=== PATIENT | female | born 1960 | race Caucasian/White ===

== ENCOUNTER 2021-11-06 13:40 | Outpatient (REF) | payer MEDICAID, SELFPAY ==
--- NOTE | ~2021-11-06 | XR_ITS ---
EXAMINATION: XR SHOULDER, RIGHT CLINICAL INFORMATION: Pain in right shoulder COMPARISON: None TECHNIQUE: AP external rotation, Grashey, scapular Y, and axillary views of the right shoulder. FINDINGS: Glenohumeral joint space and alignment are maintained. No evidence of arthritic deformity, fracture or subluxation at the glenohumeral joint. The humeral head is well positioned over the intact glenoid. Acromioclavicular joint is normal. No hook-shaped acromion or acromiohumeral distance narrowing. A punctate calcification is seen in region of distal infraspinatus tendon. No significant calcium deposition within rotator cuff tendons. The visualized portion of the right lung is normal. XR/XR shoulder RT min 2V IMPRESSION: * No arthritic disease, fracture or malalignment at the right shoulder. * There is likely a punctate calcification within the distal infraspinatus tendon -- possible minimal calcific tendinopathy.
== END 2021-11-06 13:41 | disposition home or self-care (01) ==
LOC: HO.XRAY 13:40
PROVIDERS: PCP Student in an Organized Health Care Education/Training Program; Visit Provider Student in an Organized Health Care Education/Training Program
DX: M25.511 Pain in right shoulder (principal)
CPT/HCPCS: 73030

== ENCOUNTER 2023-06-09 14:16 | Outpatient (REF) | payer MEDICAID, SELFPAY ==
--- NOTE | ~2023-06-09 | XR_ITS ---
EXAMINATION: XR CERVICAL SPINE CLINICAL INFORMATION: Paresthesias and left hand COMPARISON: None available. TECHNIQUE: 6 views of the cervical spine, inclusive of flexion and extension views, were obtained. FINDINGS: No evidence for acute fracture. There is 4 mm of anterolisthesis of C3 on C4. Moderate to severe multilevel degenerative disc disease, greatest at C5-C6 and C6-C7. Multilevel marginal osteophyte formation. Multilevel moderate facet arthropathy. Suspect some degree of left-sided foraminal narrowing at C3-C4 and C4-C5. Lateral masses are symmetric. Prevertebral soft tissues unremarkable. Lung apices are clear. XR/XR cervical spine 5V IMPRESSION: 1. Moderate to severe multilevel degenerative disc disease, greatest at C5-C6 and C6-C7. 2. Grade 1 anterolisthesis of C3 on C4.
--- NOTE | ~2023-06-09 | XR_ITS ---
EXAMINATION: XR SHOULDER, LEFT CLINICAL INFORMATION: Chronic left shoulder pain COMPARISON: None available. TECHNIQUE: AP external rotation, Grashey, scapular Y, and axillary views of the left shoulder. FINDINGS: The bones and soft tissues are normal. No fracture. Glenohumeral and acromioclavicular alignment is anatomic with normal joint space. No abnormal soft tissue calcifications. XR/XR shoulder LT min 2V IMPRESSION: No acute abnormality in the left shoulder.
[2023-06-09 17:49] LABS: MANUAL DIFF FLAG NO
[2023-06-09 18:01] LABS: Appearance Urine Clear; Color Urine Yellow; Glucose Urine UA Negative (Negative); Leukocyte Esterase Urine Negative (Negative); Nitrite Urine Negative (Negative); Urine Blood Negative (Negative); Urine Ketones Negative (Negative); Urine Protein Negative (Neg-Trace)
[2023-06-09 18:31] LABS: Basophils Absolute Auto 0.1 X10*3/uL (0.0-0.2); Eosinophils Absolute Auto 0.2 X10*3/uL (0.0-0.4); Eosinophils Percent Auto 2.9 % (0-4); Hematocrit 43.3 % (37.0-47.0); Hemoglobin 13.9 g/dl (12.0-16.0); Imm Gran Abs Auto 0.01 X10*3/uL (0.00-0.03); Imm Gran Pct Auto 0.1 % (0.0-0.4); Lymphocytes Absolute Auto 2.3 X10*3/uL (1.2-4.9); Lymphocytes Percent Auto 31.3 % (20-40); Mean Corpuscular HGB Conc 32.1 g/dl (31.0-35.0); Mean Corpuscular Volume 96.4 fL (80.0-98.0); Mean Platelet Volume 10.2 fL (9.4-12.3); Monocytes Absolute Auto 0.5 X10*3/uL (0.1-1.2); Monocytes Percent Auto 6.9 % (2-11); Neutrophils Absolute Auto 4.2 x10*3/uL (2.0-8.3); Neutrophils Percent Auto 57.8 % (45-73); Platelet Count 203 X10*3/uL (160-400); Red Blood Count 4.49 X10*6/uL (4.20-5.50); White Blood Count 7.2 X10*3/uL (4.8-10.8)
[2023-06-09 18:35] LABS: Alanine Aminotransferase 12 U/L (0-31); Alkaline Phosphatase 68 U/L (39-117); Anion Gap 14 (12-20); Aspartate Amino Transferase 17 U/L (5-31); Bilirubin Total 0.5 mg/dL (0.0-1.0); Blood Urea Nitrogen 13 mg/dL (9-16); Calcium 9.6 mg/dL (8.4-10.2); Carbon Dioxide 29 mmol/L (22-29); Chloride 100 mmol/L (96-108); Estimated Glomerular Filt Rate > 60; Glucose Random 110 mg/dL (60-115); Potassium 4.1 mmol/L (3.3-5.1); Sodium 139 mmol/L (135-145); Total Protein 6.9 g/dL (6.5-8.0)
[2023-06-09 18:40] LABS: Creatinine Urine 38.37 mg/dL; Microalbumin Urine < 5.0 mg/L
== END 2023-06-09 14:17 | disposition home or self-care (01) ==
LOC: HO.CHCLDS 14:16
PROVIDERS: Absent Provider Student in an Organized Health Care Education/Training Program; PCP Student in an Organized Health Care Education/Training Program; Visit Provider Internal Medicine
DX: M25.512 Pain in left shoulder (principal); G89.29 Other chronic pain; R20.2 Paresthesia of skin; R60.0 Localized edema
CPT/HCPCS: 36415; 72050; 73030; 80053; 81003; 82043; 85025

== ENCOUNTER 2023-07-20 09:33 | Outpatient (REF) | payer MEDICAID, SELFPAY ==
[2023-07-20 14:55] LABS: Alanine Aminotransferase 16 U/L (0-31); Albumin Level 4.2 g/dL (3.5-5.0); Alkaline Phosphatase 83 U/L (39-117); Aspartate Amino Transferase 19 U/L (5-31); Bilirubin Direct 0.1 mg/dL (0.0-0.5); Bilirubin Total 0.3 mg/dL (0.0-1.0); Cholesterol 251 mg/dL (<200); HDL Cholesterol 63 mg/dL (>40); LDL Cholesterol Calculated 163 mg/dL (<100); Total Protein 7.5 g/dL (6.5-8.0); Triglycerides 126 mg/dL (<150)
[2023-07-20 15:06] LABS: Thyroid Stimulating Hormone 2.26 uIU/mL (0.32-4.0)
== END 2023-07-20 09:34 | disposition home or self-care (01) ==
LOC: HO.CHCLDS 09:33
PROVIDERS: Visit Provider Student in an Organized Health Care Education/Training Program
DX: E03.9 Hypothyroidism, unspecified (principal)
CPT/HCPCS: 36415; 80061; 80076; 84443

== ENCOUNTER 2023-11-17 13:22 | Outpatient (REF) | payer MEDICAID, SELFPAY ==
--- NOTE | ~2023-11-17 | XR_ITS ---
STUDY: Chest, cervical spine and left shoulder INDICATION: Left arm pain COMPARISON: 06/09/2023 screening cervical spine and left shoulder. TECHNIQUE: PA and lateral chest, 4 view cervical spine, 3 view left shoulder FINDINGS: Chest: Heart and mediastinum within normal limits. Lungs are hyperinflated with biapical pleural thickening. No vascular congestion, consolidations or effusions. Bony structures are intact. Cervical spine: Straightening/slight reversal of normal cervical lordosis. 4 mm anterolisthesis C3 on C4 is unchanged. C5 and C6 vertebral body height losses again noted. Multilevel spurring and disc space narrowings again seen. Odontoid is partially obscured but appears intact. Posterior elements are aligned and no prevertebral soft tissue swelling is seen. Lung apices are clear. Soft tissues are unremarkable. Left shoulder: Acromioclavicular glenohumeral joints are maintained. No fracture or dislocation. Alignment and articulations are maintained. Visualized left lung and ribs are unremarkable. XR/XR cervical spine 3V IMPRESSION: No acute cardiopulmonary disease. Cervical spondylosis with unchanged C3 on C4 anterolisthesis. No acute bony pathology left shoulder.
--- NOTE | ~2023-11-17 | XR_ITS ---
STUDY: Chest, cervical spine and left shoulder INDICATION: Left arm pain COMPARISON: 06/09/2023 screening cervical spine and left shoulder. TECHNIQUE: PA and lateral chest, 4 view cervical spine, 3 view left shoulder FINDINGS: Chest: Heart and mediastinum within normal limits. Lungs are hyperinflated with biapical pleural thickening. No vascular congestion, consolidations or effusions. Bony structures are intact. Cervical spine: Straightening/slight reversal of normal cervical lordosis. 4 mm anterolisthesis C3 on C4 is unchanged. C5 and C6 vertebral body height losses again noted. Multilevel spurring and disc space narrowings again seen. Odontoid is partially obscured but appears intact. Posterior elements are aligned and no prevertebral soft tissue swelling is seen. Lung apices are clear. Soft tissues are unremarkable. Left shoulder: Acromioclavicular glenohumeral joints are maintained. No fracture or dislocation. Alignment and articulations are maintained. Visualized left lung and ribs are unremarkable. XR/XR shoulder LT min 2V IMPRESSION: No acute cardiopulmonary disease. Cervical spondylosis with unchanged C3 on C4 anterolisthesis. No acute bony pathology left shoulder.
--- NOTE | ~2023-11-17 | XR_ITS ---
STUDY: Chest, cervical spine and left shoulder INDICATION: Left arm pain COMPARISON: 06/09/2023 screening cervical spine and left shoulder. TECHNIQUE: PA and lateral chest, 4 view cervical spine, 3 view left shoulder FINDINGS: Chest: Heart and mediastinum within normal limits. Lungs are hyperinflated with biapical pleural thickening. No vascular congestion, consolidations or effusions. Bony structures are intact. Cervical spine: Straightening/slight reversal of normal cervical lordosis. 4 mm anterolisthesis C3 on C4 is unchanged. C5 and C6 vertebral body height losses again noted. Multilevel spurring and disc space narrowings again seen. Odontoid is partially obscured but appears intact. Posterior elements are aligned and no prevertebral soft tissue swelling is seen. Lung apices are clear. Soft tissues are unremarkable. Left shoulder: Acromioclavicular glenohumeral joints are maintained. No fracture or dislocation. Alignment and articulations are maintained. Visualized left lung and ribs are unremarkable. XR/XR chest 2V IMPRESSION: No acute cardiopulmonary disease. Cervical spondylosis with unchanged C3 on C4 anterolisthesis. No acute bony pathology left shoulder.
== END 2023-11-17 13:23 | disposition home or self-care (01) ==
LOC: HO.XRAY 13:22
PROVIDERS: Visit Provider Pediatrics
DX: M25.512 Pain in left shoulder (principal); G89.29 Other chronic pain; J06.9 Acute upper respiratory infection, unspecified; M54.2 Cervicalgia
CPT/HCPCS: 71046; 72040; 73030

== ENCOUNTER 2023-11-24 16:15 | Outpatient (REF) | payer MEDICAID, SELFPAY | END 2023-11-24 16:16 | disposition home or self-care (01) | LOC: HO.CHCLNP 16:15 | PROVIDERS: Visit Provider Internal Medicine | DX: N30.00 Acute cystitis without hematuria (principal) | CPT/HCPCS: 87086; 87088; 87186 ==

== ENCOUNTER 2024-06-06 14:21 | Outpatient (REF) | payer MEDICAID, SELFPAY ==
--- NOTE | ~2024-06-06 | XR_ITS ---
EXAMINATION: XR SHOULDER, RIGHT CLINICAL INFORMATION: Right shoulder pain. COMPARISON: None available. TECHNIQUE: AP external rotation, Grashey, scapular Y, and axillary views of the right shoulder. FINDINGS: Bones are osteopenic. No fracture or malalignment. Glenohumeral and acromioclavicular joints are unremarkable. Soft tissues are normal. XR/XR shoulder RT min 2V IMPRESSION: No acute osseous findings at the right shoulder. Osteopenia.
== END 2024-06-06 14:22 | disposition home or self-care (01) ==
LOC: HO.HMGCX 14:21
PROVIDERS: PCP Student in an Organized Health Care Education/Training Program; Visit Provider Internal Medicine
DX: M25.511 Pain in right shoulder (principal); G89.29 Other chronic pain
CPT/HCPCS: 73030

== ENCOUNTER 2024-11-10 10:05 | Outpatient (REF) | payer MEDICAID, SELFPAY | END 2024-11-10 10:06 | disposition home or self-care (01) | LOC: HO.HOSX 10:05 | PROVIDERS: Visit Provider Physician Assistant | DX: Z13.89 Encounter for screening for other disorder (principal) ==

== ENCOUNTER 2024-11-11 08:45 | Outpatient (REF) | payer MEDICAID, SELFPAY | END 2024-11-11 08:46 | disposition home or self-care (01) | LOC: HO.HOSX 08:45 | PROVIDERS: Visit Provider Physician Assistant | DX: M25.512 Pain in left shoulder (principal); M19.012 Primary osteoarthritis, left shoulder; M24.812 Other specific joint derangements of left shoulder, not elsewhere classified | CPT/HCPCS: 73030; 99212 ==

== ENCOUNTER 2024-11-11 10:57 | Outpatient (AMB) | payer MEDICAID, SELFPAY ==
--- NOTE | 2024-11-11 10:59 | A.OFFVIS_ITS ---
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 Patient reports ongoing pain for about a year and she feels like it is getting worse over time. She mentions that her pain is worse when she is lifting, pushing, raising her arm, and carrying heavy items. Patient states that her pain is all around her shoulder and it radiates up to her neck occasionally. She expresses that she has tried NSAIDs and Tylenol with no relief. 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 The patient was seen by Dr. Marion Cortez on 10/11/24 for left shoulder pain. She described her pain as an ache. She is unable to bear weight in her left upper extremity. She notices joint locking and limited range of motion. She received 2 ml of 40 mg Kenalog and 2 ml of 2% lidocaine injection in the left shoulder on that encounter. She was referred to [facility] for further evaluation of pain. While in the office today, the patient reports persistent left shoulder pain ongoing for about a year and has been getting worse. She specifies her pain in her whole left shoulder that occasionally radiates up to her neck. She mentions worsening pain with lifting, pushing, raising her left arm, and while carrying heavy items. She has tried NSAIDs and Tylenol with no relief.? She has a significant past medical history of osteoarthritis. Review of Systems Const All systems reviewed & are unremarkable except as noted in HPI and below Physical Exam Const General: cooperative and no acute distress Orientation/consciousness: patient oriented x3 Resp Effort & Inspection: normal respiratory effort and able to speak in complete sentences Cardio Peripheral pulses: Peripheral pulses 2+ throughout Skin General skin exam: no rashes or lesions noted Neuro General: patient oriented x3 Extrem Other: Left shoulder: Normal to inspection. No ecchymosis, erythema, or edema. Forward flexion and abduction lacking about 30 degrees. Pain with crossbody reach. 4/5 strength with an empty can test. Negative drop arm. NVI. Assessment & Plan Assessment & Plan (1) Osteoarthritis of left shoulder: Code(s): M19.012 - Primary osteoarthritis, left shoulder Category: Medical (2) Internal derangement of left shoulder: Code(s): M24.812 - Other specific joint derangements of left shoulder, not elsewhere classified Category: Medical Plan Ms. Saeed is a 64-year-old ylagf-prkh-[id number] female who presents in the office today, as a new patient, for an evaluation of left shoulder pain. The patient was seen by Dr. Marion Cortez on 10/11/24 for left shoulder pain. She described her pain as an ache. She is unable to bear weight in her left upper extremity. She notices joint locking and limited range of motion. She received 2 ml of 40 mg Kenalog and 2 ml of 2% lidocaine injection in the left shoulder on that encounter. She was referred to [facility] for further evaluation of pain. While in the office today, the patient reports persistent left shoulder pain ongoing for about a year and has been getting worse. She specifies her pain in her whole left shoulder that occasionally radiates up to her neck. She mentions worsening pain with lifting, pushing, raising her left arm, and while carrying heavy items. She has tried NSAIDs and Tylenol with no relief.? She has a significant past medical history of osteoarthritis. The patient informed me that she has been receiving cortisone injections with her primary care provider, which are no longer effective in alleviating her pain. Therefore, she was referred to orthopedics for the possibility of surgical intervention. I have ordered an MRI of the left shoulder to further evaluate the integrity of the shoulder and surrounding structures. Follow-up will be after the MRI is obtained or sooner if needed. X-rays of the left shoulder, which were obtained while in the office today and were reviewed by me, Della Gutierrez PA-C, revealed: Arthritic changes and deformity of the humeral head.? Orders: Orders XR shoulder LT min 2V Today M25.519 - Pain in unspecified shoulder MR shoulder LT wo con Today M19.012 - Primary osteoarthritis, left shoulder, M24.812 - Other specific joint derangements of left shoulder, not elsewhere classified Patient Instructions: Scribed by Oralia Vieira, medical imaging technologist, for Della Gutierrez PA-C on 11/11/24 at 11:31 am EST. Coding Level of Care Code New Pt Level 4 (30820) Diagnoses Osteoarthritis of left shoulder M19.012 Internal derangement of left shoulder M24.812
== END 2024-11-11 11:15 | disposition home or self-care (01) ==
PROVIDERS: PCP Student in an Organized Health Care Education/Training Program; Visit Provider Physician Assistant
DX: M19.012 Primary osteoarthritis, left shoulder (principal); M24.812 Other specific joint derangements of left shoulder, not elsewhere classified
CPT/HCPCS: 99204

== ENCOUNTER 2024-11-27 10:40 | Outpatient (REF) | payer MEDICAID, SELFPAY | END 2024-11-27 10:41 | disposition home or self-care (01) | LOC: HO.MRI 10:40 | PROVIDERS: PCP Student in an Organized Health Care Education/Training Program; Visit Provider Physician Assistant | DX: M19.012 Primary osteoarthritis, left shoulder (principal); M24.812 Other specific joint derangements of left shoulder, not elsewhere classified | CPT/HCPCS: 73221 ==

== ENCOUNTER → 2024-11-27 10:40 | Outpatient (BNV) | payer MEDICAID, SELFPAY | PROVIDERS: PCP Student in an Organized Health Care Education/Training Program; Visit Provider Radiology Diagnostic Radiology | DX: M75.122 Complete rotator cuff tear or rupture of left shoulder, not specified as traumatic (principal); M89.8X2 Other specified disorders of bone, upper arm | CPT/HCPCS: 73221 ==

== ENCOUNTER → 2024-12-29 14:08 | Outpatient (BNVA) | payer MEDICAID, SELFPAY | PROVIDERS: PCP Student in an Organized Health Care Education/Training Program; Visit Provider Orthopaedic Surgery | DX: M12.812 Other specific arthropathies, not elsewhere classified, left shoulder (principal); M87.022 Idiopathic aseptic necrosis of left humerus | CPT/HCPCS: 99212 ==

== ENCOUNTER 2025-01-02 15:17 | Outpatient (REF) | payer MEDICAID, SELFPAY ==
--- OUTSIDE RECORDS SUMMARY | 2025-01-02 16:47 | XMS_ITS | Encounter Summary ---
Author Organization [employer] Address [address] [place] [address] [address] [place] [address] Care Team Providers Care Machinist Class B Name Role Phone Marion Cortez MD Primary Care Provider [phone] Reason for Visit * Reason Comments OBAT F/U Encounter Details Date Type Department Care Team (Latest Contact Info) Description 12/05/2024 9:30 AM EST Office Visit [facility] PEDS [address] [place] [address] Yovani Ramires MD [address] [place] [address] Uncomplicated opioid dependence (CMS/HCC) (Primary Dx); Opioid dependence, uncomplicated (CMS/HCC) Social History Tobacco Use Types Packs/Day Years Used Date Smoking Tobacco: Every Day Cigarettes Passive Smoke Exposure: Current Smokeless Tobacco: Never Housing Stability Answer Date Recorded What is your housing situation today? I have hayde escalante 09/14/[address] you li ve. Do you have problems with any of the following? None of the above 09/14/2023 Food Insecurity Answer Date Recorded Within the past 12 months, y ou worried that your food would run out before you got money to buy more: Never True 09/14/2023 Within the past 12 months,th e food you bought just didn't last and you didn't have enough money to get more: Never True Transportation Answer Date Recorded In the past 12 months, has l ack of transportation kept you from medical appts, meetings, work or from getting things needed for daily living? No 09/14/2023 Utilities Answer Date Recorded In the past 12 months, has t he electric, gas, oil or water [employer] threatened to shut off services in your home? No 09/14/2023 Comments No Sex and Gender Information Value Date Recorded Sex Assigned at Female 09/29/2022 10:18 AM EDT Legal Sex Female 10:18 AM EDT Gender Identity Female 09/29/2022 10:18 AM EDT Sexual Orientation Straight 09/29/2022 10 :18 AM EDT documented as of this encounter Progress Notes * Yovani Ramires MD - 12/05/2024 9:30 AM EST Patient has been in the OBAT program for 16 years 7 months (intake date: 04/2008) Current Suboxone dose of 20/5 mg daily with appointments on a 8-week schedule Behavioral health provider is integrated clinician as needed SINAI ERAZO reviewed by provider COVID Vaccinated. 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 Denies cravings/relapse Suboxone dosing schedule and management of side effects reviewed TODAY OBAT VISIT 12/05/2024 UTOX: POS BUP ONLY NEG FOR ALL OTHER SUBSTANCES Patient presents for OUD OBAT visit Struggling with her chronic pain (neck and shoulders) Inquiring about increasing the dose of Suboxone Just got her shoulder MRI done (ordered by Ortho) Helps out with care of grandchildren (one with autism); one in and the other middle school Mother 2 years ago due to dementia complications Grieving her loss, but has family supports 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 The patient is not nervous/anxious. Physical Exam Constitutional: Appearance: Normal appearance. Pulmonary: Effort: Pulmonary effort is normal. Neurological: Mental Status: She is alert. Psychiatric: Mood and Affect: Mood normal. Behavior: Behavior normal. Darlin was seen today for obat f/u . Diagnoses and all orders for this visit: Uncomplicated opioid dependence (CMS/HCC) (Primary) - POCT JUANI-14 Urine Drug Screen - Hepatic Function Panel; Future Patient presents for a routine OUD OBAT visit Discussed treatment options for opioid dependence Patient is tolerating current treatment of Buprenorphine/Naloxone SL Will increase the dose of Buprenorphine/Naloxone to 8mg/2mg SL TID per patient request Advised to check LFT Discussed behavioral modification and accessing services Counseling provided with a focus on support system, tools for achieving/maintaining recovery Reviewed barriers for these goals Discussed strategies to address when faced situations that may trigger use Continue with current visit schedule Narcan use discussed [place] reviewed Reviewed risk assessment for family planning, STI and PrEP Follow up in 8 weeks This information has been disclosed to you from records protected by federal confidentiality rules (42 CFR Part 2). The federal rules prohibit you from making any further disclosure of information inthis record that identifies a patient as having or having had a substance use disorder either directly, by reference to publicly available information, or through verification of such identification by another person unless further disclosure is expressly permitted by the written consent of the individual whose information is being disclosed or as otherwise permitted by (see2.3.1). The federal rules restrict any use of the information to investigate or prosecute with regard to a crime any patient with a substance use disorder, except as provided at 2.12??(5) and 2.65. documented in this encounter Plan of Treatment Upcoming Encounters Date Type Department Care Team (Late st Contact Info) Description 01/30/2025 9:30 AM EST Office Visit [facility] PED[facility] [address] [place] [address] Yovani Ramires MD [address] [place] [address] [phone] Scheduled Orders Name Type Priority Associated Diagnoses Orde r Schedule Hepatic Function Panel Lab Routine Uncomplicated opioid dependence (CMS/HCC) Expected: 12/05/2024 (Approximate), Expires: 12/05/2025 documented as of this encounter Procedures Procedure Name Priority Date/Time Associated Diagnosis Comments POCT JUANI-14 URINE DRUG SCREEN Routine 12/05/2024 11:16 AM EST Uncomplicated opioid dependence (CMS/HCC) documented in this encounter Results * POCT JUANI-14 Urine Drug Screen (12/05/2024 11:16 AM EST) THC Negative Cocaine Screen, Urine Negative Opiate Screen, Urine Negative Methamphetamine Screen Urine Negative Amphetamine Screen, Urine Negative Benzodiazepines Screen, Urine Negative Barbiturate Screen, Urine Negative Methadone Screen, Urine Negative Buprenophine Screen, Urine Positive TCA, Urine Negative MDMA Urine Negative ng/mL Oxycodone Screen, Urine Negative Phencyclidine (PCP), Urine Negative Propoxyphene, Urine Negative Urine Urine specimen obtained by clean catch procedure / Unknown 12/05/2024 11:16 AM EST Yovani Ramires MD POINT OF CARE TEST ENTER/EDIT OR DERABLES Final Result documented in this encounter Visit Diagnoses Diagnosis Uncomplicated opioid dependence (CMS/HCC)- Primary Opioid dependence, uncomplicated (CMS/HCC) documented in this encounter Care Teams Machinist Class B Relationship Specialty Start Date End Date Marion Cortez MD [address] [place] [id number] PCP - General Family Medicine 11/12/12 documented as of this encounter
--- OUTSIDE RECORDS SUMMARY | 2025-01-02 16:47 | XMS_ITS | Encounter Summary ---
Author Organization [employer] Address [address] [place] [address] [address] [place] [address] Care Team Providers Care Inventory Clerk Name Role Phone Marion Cortez MD Primary Care Provider [phone] Reason for Visit * Reason Comments Med Refill Encounter Details Date Type Department Care Team ([facility] Contact Info) Description 12/13/2024 Refill [facility] MED & PEDS [address] [place], [place] [phone] Marion Cortez MD [address] [place] [address] Uncomplicated asthma, unspecified asthma severity, unspecified whether persistent Social History Tobacco Use Types Packs/Day Years [...] t he electric, gas, oil or water company threatened to shut off services in your home? No 09/14/2023 Comments No Sex and Gender Information Value Date Recorded Sex Assigned at Female 09/29/2022 10:18 AM EDT Legal Sex Female 10:18 AM EDT Gender Identity Female 09/29/2022 10:18 AM EDT Sexual Orientation Straight 09/29/2022 10 :18 AM EDT documented as of this encounter Plan of Treatment Upcoming Encounters Date Type Department Care Team (Late st Contact Info) Description 01/30/2025 9:30 AM EST Office Visit [facility] MED & PEDS [address] [place] [address] Yovani Ramires MD [address] [place] [address] documented as of this encounter Visit Diagnoses Diagnosis Uncomplicated asthma, unspecified asthma severity, unspecified whether persistent documented in this encounter Care Teams Inventory Clerk Relationship Specialty Start Date End Date Marion Cortez MD [address] [place] [address] PCP - General Family Medicine 11/12/12 documented as of this encounter
--- OUTSIDE RECORDS SUMMARY | 2025-01-02 16:47 | XMS_ITS | Clinical Summary ---
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 Name Role Phone Marion Cortez MD Primary Care Provider Allergies No known active allergies Medications albuterol (2.5 MG/3ML) 0.083% nebulizer solution inhale 3 milliliter by nebulization route every 4 - 6 hours 015 Active ibuprofen 800 MG tablet take 1 tablet by oral route 3 times every day with food 022 Active naloxone (Narcan) 4 mg/0.1 mL nasal spray spray 0.1 milliliter by intranasal route in 1 nostril may repeat dose every 2-3 minutes as needed alternating nostrils with each dose 020 Active Nebulizers (Comp Air Compressor Nebulizer) misc To use every 4-6 hours as needed 015 Active Elastic Bandages & Supports (Futuro Therapeutic Stocking) miscIndications: Swelling of lower extremity 10-20 mm/Hg. Knee high. Dx : Edema lower limbs. 1 each 023 Active phenazopyridine (Pyridium) 100 MG tabletIndication s:Acute cystitis without hematuria TAKE ONE TABLET BY MOUTH THREE TIMES DAILY NEEDED FOR BLADDER SPASMS 6 tablet 024 Active meloxicam (Mobic) 15 MG tablet TAKE ONE TABLET EVERY MORNING 30 tablet 11 024 Active cyclobenzaprine (Flexeril) 10 MG tablet TAKE ONE TABLET THREE TIMES DAILY FOR 10 DAYS 30 tablet 1 024 Active levothyroxine (Synthroid, Levoxyl) 112 MCG tablet TAKE ONE TABLET BY MOUTH EVERY DAY 90 tablet 5 024 Active cyclobenzaprine (Flexeril) 10 MG tablet Take 1 tablet (10 mg) by mouth 3 times daily for 10 days. 30 tablet 024 Active PARoxetine (Paxil) 30 MG tabletIndication s:Depression, unspecified depression type TAKE ONE TABLET BY MOUTH DAILY 30 tablet 3 024 Active Buprenorphine HCl-Naloxone HCl (Suboxone) 8-2 MG SL filmIndications: Opioid dependence, uncomplicated (CMS/HCC) Place 1 Film under the tongue 3 times daily. 84 Film 1 025 2024 Active Ventolin HFA 108 (90 Base) MCG/ACT inhalerIndicatio ns:Uncomplicated asthma, unspecified asthma severity, unspecified whether persistent INHALE TWO PUFFS EVERY 4 HOURS NEEDED FOR WHEEZING 18 g 1 025 Active Ventolin HFA 108 (90 Base) MCG/ACT inhalerIndicatio ns:Uncomplicated asthma, unspecified asthma severity, unspecified whether persistent INHALE TWO PUFFS EVERY 4 HOURS NEEDED FOR WHEEZING 18 g 1 024 2024 Discontinued buprenorphine-na loxone (Suboxone) 8-2 MG SL tabletIndication s:Opioid dependence, uncomplicated (CMS/HCC) Place 2 tablets under the tongue Once per day. 56 tablet 1 024 2024 Discontinued buprenorphine-na loxone (Suboxone) 4-1 MG per sublingual filmIndications: Opioid dependence, uncomplicated (CMS/HCC) Place 1 Film under the tongue Once per day. 28 Film 1 024 2024 Discontinued Active Problems Problem Noted Date Diagnosed Date Tobacco dependence syndrome 08/07/2015 Opioid dependence 01/25/2013 Ganglion cyst 04/01/2012 Hypothyroidism 04/01/2012 Postmenopausal bleeding 04/01/2012 Encounters Date Type Department Care Team Description 01/02/2025 Refill [facility] [address] [place] [address] Marion Cortez MD 12/13/2024 Refill [facility] [address] [facility] [place] [address] Marion Cortez MD Uncomplicated asthma, unspecified asthma severity, unspecified whether persistent 12/05/2024 9:30 AM EST Office Visit [facility] [address] [place] [address] Yovani Ramires MD Uncomplicated opioid dependence (CMS/HCC) (Primary Dx); Opioid dependence, uncomplicated (CMS/HCC) 12/05/2024 Travel 11/28/2024 Refill [facility] [address] [place] [address] Josh Campos RN Opioid dependence, uncomplicated (CMS/HCC) 11/27/2024 Orders Only [facility] External Provider, [facility] 11/03/2024 9:45 AM EST Procedure Visit [facility] [address] [place] [address] Marion Cortez MD Chronic right shoulder pain (Primary Dx) 11/03/2024 Travel 11/02/2024 Telephone [place] [employer] [address] [place] [address] Marion Cortez MD 10/28/2024 Refill [facility] [address] [place] [address] Marion Cortez MD Depression, unspecified depression type 10/16/2024 Refill [facility] [address] [place] [address] Marion Cortez MD Uncomplicated asthma, unspecified asthma severity, unspecified whether persistent 10/11/2024 10:00 AM EST Procedure Visit [facility] [address] [place] [id number] Marion Cortez MD Chronic left shoulder pain (Primary Dx) 10/11/2024 Travel 10/10/2024 10:30 AM EST Office Visit [facility] [address] [place] [address] Yovani Ramires MD Opioid type dependence, continuous (CMS/HCC) (Primary Dx) 10/10/2024 Travel 10/03/2024 Refill [facility] [address] [place] [address] Josh Campos RN Opioid dependence, uncomplicated (CMS/HCC) from Last 3 Months Immunizations Name Administration Dates Next Due Influenza injectable quadriv alent IIV4 with preservative 09/06/2018,01/05/2018 Influenza, IIV3, injectable 10/16/2014 Influenza, Split (incl. purified surface antigen ) 08/17/2012 Pfizer Covid-19 Vaccine 12+ 03/24/2021, Td (adult), unspecified 08/19/2001 Social History Tobacco Use Types Packs/Day Years Used Date Smoking Tobacco: Every Day Cigarettes Passive Smoke Exposure: Current Smokeless Tobacco: Never Tobacco Cessation:Ready to Q uit: Not Asked; Counseling Given: Not Answered Housing Stability Answer Date Recorded What is [...] Orientation Straight 09/29/2022 10 :18 AM EDT Last Filed Vital Signs Vital Sign Reading Time Taken Comments Blood Pressure 143/76 11/03/2024 10:06 AM EST Pulse 73 11/03/2024 10:06 AM EST Temperature 36.3 ??C (97.3 ??F) 11/03/2024 10:[address] Respiratory Rate 12 11/03/2024 10:06 AM EST Oxygen Saturation 93% 11/03/2024 10:06 AM EST Inhaled Oxygen Concentration - - Weight 66.2 kg (146 lb) 11/03/2024 10:06 AM EST Height 154.9 cm (5' 1 ) 11/03/2024 10:06 AM EST Body Mass Index 27.59 11/03/2024 10:06 AM EST Plan of Treatment Upcoming Encounters Date Type Department Care Team (Late st Contact Info) Description 01/30/2025 9:30 AM EST Office Visit [facility] [address] [place] [address] Yovani Ramires MD [address] [place] [address] Health Maintenance Due Date Last Done Comments CT Colonography 1961 Colonoscopy 1961 Colorectal Cancer Screening 1961 Dental Oral Exam 1961 Dental Prophylaxis 1961 Dental X-Ray: Full Mouth 1961 Depression Screening 1961 FIT DNA/Cologuard 1961 FIT 1961 FOBT 1961 HIV Screening 1961 Sigmoidoscopy 1961 Pneumococcal Vaccine: Pediatrics (0 to 5 Years) and At-Risk Patients (6 to 49) Years) (1 of 2 - PCV) 1967 Alcohol/Substance Use Screening 1973 Hepatitis A Vaccines (1 of 2 - Risk 2-dose series) 1980 Pneumococcal Vaccine: 50+ Years (1 of 2 - PCV) 1980 Pap Smear 1982 DTaP/Tdap/Td Vaccines (1 - Tdap) 08/20/2001 08/19/2001 Zoster Vaccines (1 of 2) 2011 Mammogram 01/27/2020 01/27/2018 RSV Patients and Patients Aged 60 years or older (1 - Risk 60-74 years 1-dose series) 2021 Cervical Cancer Screening 01/05/2023 HPV/Cotest 01/05/2023 01/05/2018 SDOH Screening 06/25/2024 06/25/2023 COVID-19 Vaccine ( season) 2024 03/24/2021, 03/02/2021 Influenza Vaccine (#1) 2024 8, 01/05/2018, 10/16/2014, Additional history exists Dental X-Ray: Bitewings 08/20/2024 08/19/2023 Tobacco Screening 10/11/2025 10/11/2024 Lipid Panel 07/20/2028 07/20/2023 Hepatitis C Screening Completed 08/19/2021 HIB Vaccines Aged Out No longer eligi ble based on patient's age to complete this topic HPV Vaccines Aged Out No longer eligi ble based on patient's age to complete this topic Hepatitis B Vaccines Aged Out No long er eligible based on patient's age to complete this topic IPV Vaccines Aged Out No longer eligi ble based on patient's age to complete this topic Meningococcal Vaccine Aged Out No maria d ze eligible based on patient's age to complete this topic RSV under 20 months Aged Out No longe r eligible based on patient's age to complete this topic Rotavirus Vaccines Aged Out No longer eligible based on patient's age to complete this topic Procedures Procedure Name Priority Date/Time Associated Diagnosis Comments POCT JUANI-14 URINE DRUG SCREEN Routine 12/05/2024 11:16 AM EST Uncomplicated opioid dependence (CMS/HCC) MR SHOULDER WO CONTRAST LEFT Routine 11/27/2024 10:45 AM EST MA ARTHROCENTESIS ASPIR&/INJ MAJOR JT/BURSA W/O US Routine 11/03/2024 10:41 AM EST Chronic right shoulder pain MA ARTHROCENTESIS ASPIR&/INJ MAJOR JT/BURSA W/O US Routine 10/11/2024 10:14 AM EST Chronic left shoulder pain POCT JUANI-14 URINE DRUG SCREEN Routine 10/10/2024 10:30 AM EST Opioid type dependence, continuous (CMS/HCC) BITEWING - SINGLE RADIOGRAPHIC IMAGE Routine 08/19/2023 1:00 PM EDT LIPID PANEL, STANDARD Routine 07/20/2023 9:37 AM EDT Hypothyroidism, unspecified type [facility] HISTORICAL HEPATITIS C AB W/REFL TO HCV RNA, QN, PCR Routine 08/19/2021 11:16 AM EDT BI MAMMOGRAM SCREENING BILATERAL Routine 01/27/2018 7:04 AM EST [facility] HISTORICAL HPV MRNA E6/E7 Routine 01/05/2018 10:36 AM EST from Last 3 Months or Most Recently Relevant to Health Maintenance Results * POCT JUANI-14 Urine Drug Screen (12/05/2024 11:16 AM EST) Only the most recent of2 resultswithin the time period is included. THC Negative Cocaine Screen, Urine Negative Opiate [...] CARE TEST ENTER/EDIT OR DERABLES Final Result * MR Shoulder w/o Contrast Left (11/27/2024 10:45 AM EST) Anatomical Region Laterality Modality Upper Extremities, Shoulder Left Magn etic Resonance 11/27/2024 10:4 5 AM EST Narrative 12/06/2024 12:22 PM EST ? [facility] ?[address] ?[place] [address] ? Magnetic Resonance Report ? Signed ? Patient: Monique,Darlin ?MR#: [id number] ?? [id number] ? : 1960 ?Acct:[id number] ? Age/Sex: 64 / F ?ADM Date: 12/29/24 ? Loc: HO.MRI ? Attending Dr: Della Gutierrez PA-C ? Ordering Physician: Della Gutierrez PA-C ?? Date of Service: 11/27/24 ?? Procedure(s): MR shoulder LT wo con ?? Accession Number(s): [id number] ? cc: Della Gutierrez PA-C; Marion Cortez MD ? EXAMINATION: MRI LEFT SHOULDER WITHOUT CONTRAST ? HISTORY: M24.812 - Other specific joint derangements of left shoulder, ?? not elsewhere... ? COMPARISON: Correlation is made with plain films of the left shoulder ?? dated 11/11/2024. ? TECHNIQUE: ??Coronal T1, T2, and fat suppressed T2, axial fat suppressed ?? proton density, and sagittal T2 weighted MR images of the left shoulder ?? were obtained. ? FINDINGS: ?? There is marked bone marrow edema involving the humeral head and ?? proximal metaphysis as well as the osseous glenoid. There is mild ?? flattening of the humeral head. There is a moderate to large ?? glenohumeral joint effusion. There is moderate degenerative change ?? involving the glenohumeral joint with cartilage loss. The AC joint is ?? maintained. ? There is a large full-thickness tear of the supraspinatus tendon with ?? tendon retraction and muscle atrophy. The humeral head is high riding ?? and articulates with the undersurface of the acromion, consistent with ?? rotator cuff arthropathy. The subscapularis tendon is intact. There is ?? mild edema of the subscapularis muscle may indicate a partial tear. ?? There is a tear of the infraspinatus tendon with retraction and muscle ?? atrophy. The teres minor tendon is intact. ? The biceps tendon is normally located. ? MR/MR shoulder LT wo con ?? IMPRESSION: ? 1. Full-thickness tears of the supraspinatus and infraspinatus tendons ?? with tendon retraction and muscle atrophy. Findings consistent with ?? rotator cuff arthropathy. ? 2. Marked bone marrow edema involving the left humeral head and ?? proximal metaphysis as well as the osseous glenoid. There is associated ?? mild flattening of the humeral head and a joint effusion. Findings are ?? suggestive of avascular necrosis. Infection appears less likely. ?? Clinical correlation is recommended. ? Electronically signed by: ??Rashawn Celis MD ??12/06/2024 12:19 PM EST ? Dictated By: ?Rashawn Celis MD ? Signed By: ?<Electronically signed by Rashawn Celis MD in OV> ?12/06/24 1219 ? DD/ 1045 ? TD/TT: 11/27/24 1110 ? Coding Technician: ? Procedure Note Donjackinterpreter, Image - 12/06/[address] [address] Magnetic Resonance Report Signed Patient: Cande Amaya#: [id number] : 1960cct:[id number] Age/Sex: 64 / FADM Date: 11/27/24 Loc: HO.MRI Attending Dr: Della Gutierrez PA-C Ordering Physician: Della Gutierrez PA-C Date of Service: 11/27/24 Procedure(s): MR shoulder LT wo con Accession Number(s): [id number] cc: Della Gutierrez PA-C; Marion Cortez MD EXAMINATION: MRI LEFT SHOULDER WITHOUT CONTRAST HISTORY: M24.812 - Other specific joint derangements of left shoulder, not elsewhere... COMPARISON: Correlation is made with plain films of the left shoulder dated 11/11/2024. TECHNIQUE: Coronal T1, T2, and fat suppressed T2, axial fat suppressed proton density, and sagittal T2 weighted MR images of the left shoulder were obtained. FINDINGS: There is marked bone marrow edema involving the humeral head and proximal metaphysis as well as the osseous glenoid. There is mild flattening of the humeral head. There is a moderate to large glenohumeral joint effusion. There is moderate degenerative change involving the glenohumeral joint with cartilage loss. The AC joint is maintained. There is a large full-thickness tear of the supraspinatus tendon with tendon retraction and muscle atrophy. The humeral head is high riding and articulates with the undersurface of the acromion, consistent with rotator cuff arthropathy. The subscapularis tendon is intact. There is mild edema of the subscapularis muscle may indicate a partial tear. There is a tear of the infraspinatus tendon with retraction and muscle atrophy. The teres minor tendon is intact. The biceps tendon is normally located. MR/MR shoulder LT wo con IMPRESSION: 1. Full-thickness tears of the supraspinatus and infraspinatus tendons with tendon retraction and muscle atrophy. Findings consistent with rotator cuff arthropathy. 2. Marked bone marrow edema involving the left humeral head and proximal metaphysis as well as the osseous glenoid. There is associated mild flattening of the humeral head and a joint effusion. Findings are suggestive of avascular necrosis. Infection appears less likely. Clinical correlation is recommended. Electronically signed by: Rashawn Celis MD 12/06/2024 12:19 PM EST Dictated By: Rashawn Celis MD Signed By: <Electronically signed by Rashawn Celis MD in OV> 12/06/24 1219 DD/ 1045 TD/TT: 11/27/24 1110 Coding Technician: [facility] External Provider IMG MRI PROCEDURES Edited Result - Final * [place] ARTHROCENTESIS ASPIR&/INJ MAJOR JT/BURSA W/O US (11/03/2024 10:41 AM EST) Narrative Marion Cortez MD - 11/03/2024 10:41 AM EST Marion Cortez MD ? 11/03/2024 12:25 PM Arthrocentesis Date/Time: 11/03/2024 10:41 AM Performed by: Marion Cortez MD Authorized by: Marion Cortez MD ?? Consent: ??Consent obtained: ??Verbal ??Consent given by: ??Patient ??Risks, benefits, and alternatives were discussed: yes ?Risks discussed: ??Pain ??Alternatives discussed: ??Referral [place] protocol: ??Procedure explained and questions answered to patient or proxy's satisfaction: yes ?Relevant documents present and verified: yes ?Test results available: yes ?Imaging studies available: yes ?Required blood products, implants, devices, and special equipment available: yes ?Site/side marked: yes ?Immediately prior to procedure, a time out was called: yes ?Patient identity confirmed: ??Verbally with patient Location: ??Location: ??Shoulder ??Shoulder: ??R glenohumeral Anesthesia: ??Anesthesia method: ??Topical application Procedure details: ??Preparation: Patient was prepped and draped in usual sterile fashion ?Needle gauge: ??22 G ??Ultrasound guidance: no ?Approach: ??Posterior ??Steroid injected: yes ?Specimen collected: no ?? Post-procedure details: ??Dressing: ??Adhesive bandage ??Procedure completion: ??Tolerated us Marion Cortez MD IN CLINIC/BEDSIDE ORDERABLES Fin al Result * [place] ARTHROCENTESIS ASPIR&/INJ MAJOR JT/BURSA W/O US (10/11/2024 10:14 AM EST) Narrative Marion Cortez MD - 10/11/2024 10:14 AM EST Marion Cortez MD ? 10/11/2024 10:23 AM Arthrocentesis Date/Time: 10/11/2024 10:14 AM Performed by: Marion Cortez MD Authorized by: Marion Cortez MD ?? Consent: ??Consent obtained: ??Verbal and written ??Consent given by: ??Patient ??Risks, benefits, and alternatives were discussed: yes ?Risks discussed: ??Pain ??Alternatives discussed: ??Referral [place] protocol: ??Procedure explained and questions answered to patient or proxy's satisfaction: yes ?Relevant documents present and verified: yes ?Test results available: yes ?Imaging studies available: yes ?Required blood products, implants, devices, and special equipment available: yes ?Site/side marked: yes ?Immediately prior to procedure, a time out was called: yes ?Patient identity confirmed: ??Verbally with patient Location: ??Location: ??Shoulder ??Shoulder: ??L glenohumeral Anesthesia: ??Anesthesia method: ??Topical application Procedure details: ??Preparation: Patient was prepped and draped in usual sterile fashion ?Needle gauge: ??22 G ??Ultrasound guidance: no ?Approach: ??Posterior ??Steroid injected: yes ?Specimen collected: no ?? Post-procedure details: ??Dressing: ??Adhesive bandage ??Procedure completion: ??Tolerated Marion Cortez MD IN CLINIC/BEDSIDE ORDERABLES Fin al Result * (ABNORMAL) Lipid Panel, Standard (07/20/2023 9:37 AM EDT) Triglycerides 126 <150 mg/dL [facility] Comment:Desirable Triglyceri de: less than 150 mg/dLBorderline High Triglyceride 150-199 mg/dLHigh Triglyceride: 200-499 mg/dLVery High Triglyceride: greater than or equal to 5OO mg/dL Cholesterol 251(H) <200 mg/dL [facility] Comment:Desirable Cholestero l: less than 200 mg/dLBorderline High Cholesterol: 200-239 mg/dLHigh Cholesterol: greater than 239 mg/dL LDL Cholesterol Calculated 163(H) <100 mg/dL [facility] Comment:Desirable LDL: less than 100 mg/dLNear Optimal/Above Optimal LDL: 110- 129 mg/dLBorderline High LDL: 130-159 mg/dLHigh LDL: 160-189 mg/dLVery High LDL: greater than or equal to 190 mg/dL HDL Cholesterol 63 >40 mg/dL [facility] Comment:Desirable HDL: great er than 40 mg/dL Note: This HDL assay may give artificially low results in patients with liver disease. Blood Venous blood specimen / Unknown 07/20/2023 9:37 AM EDT 07/20/2023 2:13 PM EDT Marion Cortez MD LAB BLOOD ORDERABLES Final Resul t [facility] [address] [place] [address] [phone] * HEPATITIS C AB W/REFL TO HCV RNA, QN, PCR (08/19/2021 11:16 AM EDT) HEPATITIS C ANTIBODY NON-REACT YURY NON-REACT YURY [facility] INDEX 0.03 <1.00 [facility] Comment: ?? HCV antibody was non-reactive. There is no laboratory ?? evidence of HCV infection. ?? In most cases, no further action is required. However, if recent HCV exposure is suspected, a test for HCV RNA (test code 99407) is suggested. ?? For additional information please refer to http://education.Poken/faq/JOV76f1 (This link is being provided for informational/ educational purposes only.) ?? 08/19/2021 11:1 6 AM EDT Susan Camargo MD HISTORICAL/NON ORDERABLE LAB S Final Result Performing Organization Address City/State/[facility] Co de Phone Number [facility] [address] * 3D DIGITAL MICA SCR MAMMO 1 (01/27/2018 7:04 AM EST) Anatomical Region Laterality Modality Breast Bilateral Mammography 01/27/2018 7:04 AM EST Narrative 01/27/2018 7:07 AM EST Refer to the Notes tab for result details [facility] Procedure: 3D DIGITAL MICA SCR MAMMO 1 Procedure Note Provider, MD Malik - 02/21/2023 Refer to the Notes tab for result details [facility] Procedure: 3D DIGITAL MICA SCR MAMMO 1 Sheri BARTHOLOMEW IMG BI PROCEDURES Final R esult * HPV mRNA E6/E7 (01/05/2018 10:36 AM EST) HPV mRNA E6/E7 Not Detected NOT DETECTED [facility] Comment: This test was performed using the APTIMA(R) HPV Assay ([employer] This assay detects E6/E7 viral messenger RNA (mRNA) from 14 high-risk HPV types (16,18,31,33,35,39,45,51, 52,56,58,59,66,68). For additional information please refer to: http://education.[employer].OpenDoors.su/faq/VRF634v2 (This link is being provided for informational/ educational purposes only.) Test Performed by [employer] [facility], [facility], [address] [place] [address] Jcarlos Herrera M.D., Ph.D., Director of Laboratories , [facility] [id number] Please note: ??Effective 08/11/2016, HPV testing will be performed using [facility]'s APTIMA test which targets mRNA. Detecting mRNA instead of DNA, as in older methods, offers significant improvements in specificity. 

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
--- OUTSIDE RECORDS SUMMARY | 2025-01-02 16:47 | XMS_ITS | Encounter Summary ---
Author Organization [employer] Address 75 [facility] 7t [place] [address] Care Team Providers Care Literacy Tutor Name Role Phone Marion Cortez MD Primary Care Provider Encounter Details Date Type Department Care Team (Latest Contact Info) Description 12/05/2024 Travel Social History Tobacco Use Types Packs/Day Years [...] Description 01/30/2025 9:30 AM EST Office Visit [facility] MED & PEDS [address] [place] [address] Yovani Ramires MD [address] [place] [address] documented as of this encounter Visit Diagnoses Not on filedocumented in this encounter Care Teams Literacy Tutor Relationship Specialty Start Date End Date Marion Cortez MD [address] [place] [address] PCP - General Family Medicine 11/12/12 documented as of this encounter
--- OUTSIDE RECORDS SUMMARY | 2025-01-02 16:47 | XMS_ITS | Encounter Summary ---
Author Organization [employer] Address [address] [place] [address] Care Team Providers Care Commercial Finance Analyst Name Role Phone Marion Cortez MD Primary Care Provider [phone] Reason for Visit * Reason Comments Med Refill Encounter Details Date Type Department Care Team (Late st Contact Info) Description 08/12/2023 Refill [facility] MED & PEDS [address] [place] [address] Marion Cortez MD [address] [place] [address] Pain Social History Tobacco Use Types Packs/Day Years Used Date Smoking Tobacco: Every Day Cigarettes Passive Smoke Exposure: Current Smokeless Tobacco: Never Comments Unknown Sex and Gender Information Value [...] Description 01/30/2025 9:30 AM EST Office Visit [facility] MED & PEDS [address] [place], [place] [phone] Yovani Ramires MD [address] [place] [address] documented as of this encounter Visit Diagnoses Diagnosis Pain Generalized pain documented in this encounter Care Teams Commercial Finance Analyst Relationship Specialty Start Date End Date Marion Cortez MD [address] [place] [address] PCP - General Family Medicine 11/12/12 documented as of this encounter
--- OUTSIDE RECORDS SUMMARY | 2025-01-02 16:47 | XMS_ITS | Encounter Summary ---
Author Organization [employer] Address [address] [place] [address] Care Team Providers Care Garment Manufacturing Supervisor Name Role Phone Marion Cortez MD Primary Care Provider [phone] Reason for Visit * Reason Comments Med Refill Encounter Details Date Type Department Care Team (Late st Contact Info) Description 11/05/2022 Refill [facility] MEDICINE [address] [place], [place] [phone] Yovani Ramires MD [address] [place], [place] [phone] Opioid dependence, uncomplicated (CMS/HCC) Social History Tobacco Use Types Packs/Day Years Used Date Smoking Tobacco: Never Assessed Comments Unknown Sex and Gender Information Value [...] Description 01/30/2025 9:30 AM EST Office Visit [facility] MED & PEDS [address] [place], [place] [phone] Yovani Ramires MD [address] [place], [place] [phone] documented as of this encounter Visit Diagnoses Diagnosis Opioid dependence, uncomplicated (CMS/HCC) documented in this encounter Care Teams Garment Manufacturing Supervisor Relationship Specialty Start Date End Date Marion Cortez MD [address] [place] [address] PCP - General Family Medicine 11/12/12 documented as of this encounter
--- OUTSIDE RECORDS SUMMARY | 2025-01-02 16:47 | XMS_ITS | Encounter Summary ---
Author Organization [employer] Address 75 [facility] 7t [place] [address] Care Team Providers Care Cob Sawyer Name Role Phone Marion Cortez MD Primary Care Provider [phone] Encounter Details Date Type Department Care Team (Late st Contact Info) Description 11/27/2024 Orders Only [facility] External Provider, [facility] Social History Tobacco Use Types Packs/Day Years Used Date Smoking Tobacco: Every Day Cigarettes Passive Smoke Exposure: Current Smokeless Tobacco: Never Housing Stability Answer Date Recorded What is your housing situation today? I have haydeelroy escalante 09/14/[address] you [...] Description 01/30/2025 9:30 AM EST Office Visit [facility] MED & PEDS [address] [place] [address] Yovani Ramires MD [address] [place] [address] documented as of this encounter Procedures Procedure Name Priority Date/Time Associated Diagnosis Comments MR SHOULDER WO CONTRAST LEFT Routine 11/27/2024 10:45 AM EST documented in this encounter Results * MR Shoulder w/o Contrast Left (11/27/2024 10:45 AM EST) Anatomical Region Laterality Modality Upper Extremities, Shoulder Left Magn etic Resonance 11/27/2024 10:4 5 AM EST Narrative 12/06/2024 12:22 PM EST ? [facility] ?[address] ?[place] [address] ? Magnetic Resonance Report ? Signed ? Patient: Darlin Amaya ?MR#: [id number] ?? [id number] ? : 1960 ?Acct:[id number] ? Age/Sex: 64 / F ?ADM Date: 11/27/24 ? Loc: HO.MRI ? Attending Dr: Della Gutierrez PA-C ? Ordering Physician: Della Gutierrez PA-C ?? Date of Service: 11/27/24 ?? Procedure(s): MR shoulder LT wo con ?? Accession Number(s): [id number] ? cc: Della Gutierrez PA-C; Marion Cortez [...] ??Rashawn Celis MD ??12/06/2024 12:19 PM EST ?? RP ? Dictated By: ?Rashawn Celis MD ? Signed By: ?<Electronically signed by Rashawn Celis MD in OV> ?12/06/24 1219 ? DD/ 1045 ? TD/TT: 11/27/24 1110 ? Project Manager/Design Manager: ? Procedure Note Miguel Angel Hennessy - 12/06/[address] [address] Magnetic Resonance Report Signed Patient: Darlin AmayaMR#: [id number] : 1960cct:[id number] Age/Sex: 64 / FADM Date: 11/27/24 Loc: HO.MRI Attending Dr: Della Gutierrez PA-C Ordering Physician: Della Gutierrez PA-C Date of Service: 11/27/24 Procedure(s): MR shoulder LT wo con Accession Number(s): [id number] cc: Della uGtierrez PA-C; Marion Cortez MD EXAMINATION: MRI LEFT [...] 12/06/24 1219 DD/ 1045 TD/TT: 11/27/24 1110 Project Manager/Design Manager: [facility] External Provider IMG MRI PROCEDURES Edited Result - Final documented in this encounter Visit Diagnoses Not on filedocumented in this encounter Care Teams Cob Sawyer Relationship Specialty Start Date End Date Marion Cortez MD [address] [place] [address] PCP - General Family Medicine 11/12/12 documented as of this encounter
--- OUTSIDE RECORDS SUMMARY | 2025-01-02 16:47 | XMS_ITS | Encounter Summary ---
Author Organization [employer] Address [address] [facility] 7 [place] [address] Care Team Providers Care Fiberglass Machine Operator Name Role Phone Marion Cortez MD Primary Care Provider [phone] Reason for Visit * Reason Onset Date Comments Nurse Triage 08/17/2023 Encounter Details Date Type Department Care Team ([facility] st Contact Info) Description 08/17/2023 Telephone [facility] MEDICINE [address] [place] [address] Marion Cortez MD [address] [place] [address] Nurse Triage Social History Tobacco Use Types Packs/Day Years Used Date Smoking Tobacco: Every Day Cigarettes Passive Smoke Exposure: Current Smokeless Tobacco: Never Housing Stability Answer Date Recorded What is your housing situation today? I have hayed escalante 09/14/[address] you [...] Telephone Encounter - Angelia Sam RN - 08/17/2023 11:58 AM EDT Triage call Pt reports chronic left shoulder pain is not being helped by PT. Pt is on her last weekof Pt and was advised to make apt with PCP. Pt has been using advil for pain, ice/heat for relief also. Pt reports mobility is still restricted and no real change. Pt is advised by PT to obtain MRI and possible ortho apt. Tele visit with PCP 1130am 08/25/23 . Insurance is verified as active prior tobooking. Protocol Used: Shoulder Pain (Adult) Protocol-Based Disposition: See in Office or Video Visit within 2 Weeks Video visit not offered Positive Triage Question: * Shoulder pain is a chronic symptom (recurrent or ongoing AND present > 4 weeks) * All higher-acuity triage questions were negative Care Advice Discussed: * Reassurance and Education - Shoulder Pain * Pain Medicines * Pain Medicines - Extra Notes and Warnings * Reasons To Call Back - Chest pain or difficulty breathing occurs - Moderate pain (e.g., interferes with normal activities) lasts over 3 days - Mild pain lasts over 7 days - You become worse * Use a Cold Pack for Pain * Use Heat After 48 Hours for Pain * Telephone Encounter - Justin Sandhu - 08/17/2023 11:36 AM EDT Symptom: Shoulder Pain - Not From Injury Outcome: Schedule an urgent appointment (within 1 hour) or talk to a nurse or provider soon Reason: Severe pain now The caller accepted this outcome Please contact at [phone] documented in this encounter Plan of Treatment Upcoming Encounters Date Type Department Care Team (Late st Contact Info) Description 01/30/2025 9:30 AM EST Office Visit [facility] MED & PEDS [address] [place] [address] Yovani Ramires MD [address] [place] [address] documented as of this encounter Visit Diagnoses Not on filedocumented in this encounter Care Teams Fiberglass Machine Operator Relationship Specialty Start Date End Date Marion Cortez MD [address] [place] [address] PCP - General Family Medicine 11/12/12 documented as of this encounter
--- OUTSIDE RECORDS SUMMARY | 2025-01-02 16:47 | XMS_ITS | Encounter Summary ---
Author Organization [employer] Address [address] [place] [address] 7 [place] [address] Care Team Providers Care Hypercil Core Transformer Assembler Name Role Phone Marion Cortez MD Primary Care Provider [phone] Reason for Visit * Reason Comments Med Refill Encounter Details Date Type Department Care Team ([facility] Contact Info) Description 01/02/2025 Refill [facility] MED & PEDS [address] [place], [place] [phone] Marion Cortez MD [address] [place] [address] Social History Tobacco Use Types Packs/Day Years [...] Description 01/30/2025 9:30 AM EST Office Visit [facility] MED & PEDS [address] [place] [address] Yovani Ramires MD [address] [place] [address] documented as of this encounter Visit Diagnoses Not on filedocumented in this encounter Care Teams Hypercil Core Transformer Assembler Relationship Specialty Start Date End Date Marion Cortez MD [address] [place] [address] PCP - General Family Medicine 11/12/12 documented as of this encounter
--- OUTSIDE RECORDS SUMMARY | 2025-01-02 16:47 | XMS_ITS | Encounter Summary ---
Author Organization [employer] Address [address] [place] [address] 7 [place] [address] Care Team Providers Care Entrepreneurship Program Director Name Role Phone Marion Cortez MD Primary Care Provider [phone] Reason for Visit * Reason Onset Date Comments Referral 12/16/2023 Encounter Details Date Type Department Care Team ([facility] Contact Info) Description 12/16/2023 Telephone [facility] MED & PEDS [address] [place], [place] [phone] Marion Cortez MD [address] [place] [address] Referral Social History Tobacco Use Types Packs/Day Years [...] encounter Miscellaneous Notes * Telephone Encounter - Renae Tello - 12/17/2023 3:26 PM EST VM left for Fela regarding message below. * Telephone Encounter - Johana Watson RN - 12/17/2023 11:25 AM EST Please review message below and advise. It appears referral was placed for OT correctly. Unsure if there is something coming up on their end that shows otherwise. * Telephone Encounter - Yue Bojorquez - 12/16/2023 11:01 AM EST Tc from [place] with [facility] [place] to inform the 2 referral that were sent for left wristdrop on 11/24/23says PT and it should be OT . Please call to clarify at [phone]. . documented in this encounter Plan of Treatment Upcoming Encounters Date Type Department Care Team (Late st Contact Info) Description 01/30/2025 9:30 AM EST Office Visit [facility] MED & PEDS [address] [place] [address] Yovani Ramires MD [address] [place] [address] documented as of this encounter Visit Diagnoses Not on filedocumented in this encounter Care Teams Entrepreneurship Program Director Relationship Specialty Start Date End Date Marion Cortez MD [address] [place] [address] PCP - General Family Medicine 11/12/12 documented as of this encounter
[2025-01-02 18:15] LABS: Alanine Aminotransferase 10 U/L (0-31); Albumin Level 3.8 g/dL (3.5-5.0); Alkaline Phosphatase 64 U/L (39-117); Aspartate Amino Transferase 21 U/L (5-31); Bilirubin Direct < 0.2 mg/dL (0.0-0.5); Bilirubin Total 0.2 mg/dL (0.0-1.0); Total Protein 6.7 g/dL (6.5-8.0)
== END 2025-01-02 15:18 | disposition home or self-care (01) ==
LOC: HO.CHCLDS 15:17
PROVIDERS: Visit Provider Family Medicine
DX: F11.20 Opioid dependence, uncomplicated (principal)
CPT/HCPCS: 36415; 80076

== ENCOUNTER 2025-03-31 13:36 | Outpatient (REF) | payer MEDICAID, SELFPAY ==
--- NOTE | ~2025-03-31 | CT_ITS ---
CLINICAL HISTORY: M19.012 - Primary osteoarthritis, left shoulder CT left shoulder without contrast Comparison: MR/RI - MR SHOULDER LT WO CON - 11/27/24 10:44 EST DX/RI - XR SHOULDER LT MIN 2V - 11/11/24 10:57 EST Findings: Severe glenohumeral degenerative change. High-riding humerus articulates with the inferior surface of acromion. No significant acromioclavicular degenerative change. No acute fracture or dislocation. Old left anterolateral 4th and 5th rib fractures. Atrophic supraspinatus and infraspinatus tendons. Are likely due to chronic tears. No mass or fluid collection. Included left lung is unremarkable. Impression: 1. Severe left glenohumeral degenerative change. 2. Chronic supraspinatus and infraspinatus tendon tears with associated atrophy. This document has been electronically signed by: Victorina Brown MD on 04/04/2025 05:00:06
--- OUTSIDE RECORDS SUMMARY | 2025-03-31 13:51 | XMS_ITS | Encounter Summary ---
Author Organization [employer] Address [address] [facility] 7 [place] [address] Care Team Providers Care Entry Level Electrician Name Role Phone Marion Cortez MD Primary Care Provider [phone] Reason for Visit * Reason Onset Date Comments Nurse Triage 09/14/2024 Encounter Details Date Type Department Care Team ([facility] st Contact Info) Description 09/14/2024 Telephone [facility] MEDICINE [address] [place] [address] Marion Cortez MD [address] [place] [address] Nurse Triage Social History Tobacco Use Types [...] Care Team (Late st Contact Info) Description 05/22/2025 9:15 AM EDT Clinical Support [facility] MED & PEDS [address] [place] [address] Abbey Ocampo RN documented as of this encounter Visit Diagnoses Not on filedocumented in this encounter Care Teams Entry Level Electrician Relationship Specialty Start Date End Date Marion Cortez MD [address] [place] [address] PCP - General Family Medicine 11/12/12 documented as of this encounter
--- OUTSIDE RECORDS SUMMARY | 2025-03-31 13:51 | XMS_ITS | Clinical Summary ---
Author Organization [employer] Address [address] [place] [address] 7[address] [place] [address] Care Team Providers Care Vp Software Name Role Phone [place] Cortez MD Primary Care Provider [phone] Allergies No known active allergies Medications albuterol [...] FOR BLADDER SPASMS 6 tablet 024 Active cyclobenzaprine (Flexeril) 10 MG tablet TAKE ONE TABLET THREE TIMES DAILY FOR 10 DAYS 30 tablet 1 024 Active cyclobenzaprine (Flexeril) 10 MG tablet Take 1 tablet (10 mg) by mouth 3 times daily for 10 days. 30 tablet 024 Active Ventolin HFA 108 (90 Base) MCG/ACT inhalerIndicatio ns:Uncomplicated asthma, unspecified asthma severity, unspecified whether persistent INHALE TWO PUFFS EVERY 4 HOURS NEEDED FOR WHEEZING 18 g 1 025 Active meloxicam (Mobic) 15 MG tablet TAKE ONE TABLET EVERY MORNING 30 tablet 11 025 Active PARoxetine (Paxil) 30 MG tabletIndication s:Depression, unspecified depression type TAKE ONE TABLET BY MOUTH DAILY 30 tablet 3 025 Active levothyroxine (Synthroid, Levoxyl) 112 MCG tablet TAKE ONE TABLET BY MOUTH EVERY DAY 90 tablet 1 025 Active Buprenorphine HCl-Naloxone HCl (Suboxone) 8-2 MG SL filmIndications: Opioid dependence, uncomplicated (CMS/HCC) Place 1 Film under the tongue 3 times daily. Do not start before March 27, 2025. 84 Film 1 025 2024 Active levothyroxine (Synthroid, Levoxyl) 112 MCG tablet TAKE ONE TABLET BY MOUTH EVERY DAY 90 tablet 5 024 2024 Discontinued(R eorder (will not trigger notification to Pharmacy)) Buprenorphine HCl-Naloxone HCl (Suboxone) 8-2 MG SL filmIndications: Opioid dependence, uncomplicated (CMS/HCC) Place 1 Film under the tongue 3 times daily. 84 Film 1 025 2024 Discontinued(R eorder (will not trigger notification to Pharmacy)) Active Problems Problem Noted Date Diagnosed Date Tobacco dependence syndrome 08/07/2015 Opioid dependence 01/25/2013 Ganglion cyst 04/01/2012 Hypothyroidism 04/01/2012 Postmenopausal bleeding 04/01/2012 Encounters Date Type Department Care Team Description 03/27/2025 9:15 AM EDT Office Visit [facility] [address] [place], [place] [phone] Yovani Ramires MD Opioid type dependence, continuous (CMS/HCC) (Primary Dx) 03/27/2025 Travel 03/21/2025 Refill [facility] [address] [place], [place] [phone] Abbey Ocampo RN Opioid dependence, uncomplicated (CMS/HCC) 03/21/2025 Refill [facility] [address] [place] [address] [place] Cortez MD 02/26/2025 Refill [facility] [address] [place] [address] [place] Cortez MD Depression, unspecified depression type 02/10/2025 Population Health Risk Score [facility] ([facility]) Department [address] [place] [id number] Provider, Population Health Generic 01/23/2025 11:15 AM EST Office Visit [facility] [address] [place] [address] Yovani Ramires MD Opioid type dependence, continuous (CMS/HCC) (Primary Dx); Opioid dependence, uncomplicated (CMS/HCC); Encounter for screening mammogram for malignant neoplasm of breast 01/23/2025 Travel 01/02/2025 Refill [facility] [address] [place] [address] [place] Cortez MD from Last 3 Months Immunizations Name Administration [...] Description 05/22/2025 9:15 AM EDT Clinical Support [facility] [address] [place] [id number] Abbey Ocampo, RN Health Maintenance Due Date Last Done Comments CT Colonography 1961 Colonoscopy 1961 Colorectal Cancer Screening 1961 Dental Oral Exam 1961 Dental Prophylaxis 1961 Dental X-Ray: Full Mouth 1961 Depression Screening 1961 FIT DNA/Cologuard 1961 FIT 1961 FOBT 1961 HIV Screening 1961 Sigmoidoscopy 1961 Alcohol/Substance Use Screening 1973 Pneumococcal Vaccine: 50+ Years (1 of 2 [...] patient's age to complete this topic Hepatitis A Vaccines Aged Out No long er eligible [...] Comments POCT JUANI-14 URINE DRUG SCREEN Routine 03/27/2025 9:29 AM EDT Opioid type dependence, continuous (CMS/HCC) POCT JUANI-14 URINE DRUG SCREEN Routine 01/23/2025 11:35 AM EST Opioid type dependence, continuous (CMS/HCC) HEPATIC FUNCTION PANEL Routine 01/02/2025 3:19 PM EST Uncomplicated opioid dependence (CMS/HCC) BITEWING - SINGLE RADIOGRAPHIC IMAGE Routine 08/19/2023 1:00 PM EDT LIPID PANEL, STANDARD Routine 07/20/2023 9:37 AM EDT Hypothyroidism, unspecified type ZZZ HISTORICAL HEPATITIS C AB W/REFL TO HCV RNA, QN, PCR Routine 08/19/2021 11:16 AM EDT BI MAMMOGRAM SCREENING BILATERAL Routine 01/27/2018 7:04 AM EST ZZZ HISTORICAL HPV MRNA E6/E7 Routine 01/05/2018 10:36 AM EST from Last 3 Months or Most Recently Relevant to Health Maintenance Results * POCT JUANI-14 Urine Drug Screen (03/27/2025 9:29 AM EDT) Only the most recent of2 resultswithin the time period is included. THC Negative Cocaine Screen, Urine Negative Opiate Screen, Urine Negative Methamphetamine Screen Urine Negative Amphetamine Screen, Urine Negative Benzodiazepines Screen, Urine Negative Barbiturate Screen, Urine Negative Methadone Screen, Urine Negative Buprenophine Screen, Urine Positive TCA, Urine Negative MDMA Urine Negative ng/mL Oxycodone Screen, Urine Negative Propoxyphene, Urine Negative Fentanyl, Urine Negative Urine Urine specimen obtained by clean catch procedure / Unknown 03/27/2025 9:29 AM EDT Yovani Ramires MD POINT OF CARE TEST ENTER/EDIT OR DERABLES Final Result * Hepatic Function Panel (01/02/2025 3:19 PM EST) Bilirubin, Total 0.2 0.0 - 1.0 mg/dL [facility] Bilirubin, Direct <0.2 0.0 - 0.5 mg/dL [facility] Aspartate Amino Transferase 21 5 - 31 U/L [facility] Alanine Aminotransferase 10 0 - 31 U/L [facility] Total Protein 6.7 6.5 - 8.0 g/dL [facility] Albumin Level 3.8 3.5 - 5.0 g/dL [facility] Alkaline Phosphatase 64 39 - 117 U/L [facility] Blood Venous blood specimen / Unknown 01/02/2025 3:19 PM EST 01/02/2025 5:39 PM EST Yovani Ramires MD LAB BLOOD ORDERABLES Final Resul t [facility] [address] [place], [place] [phone] * (ABNORMAL) Lipid Panel, Standard (07/20/2023 9:37 AM EDT) Triglycerides 126 <150 mg/dL [facility] Comment:Desirable Triglyceri de: less than 150 mg/dLBorderline High Triglyceride 150-199 mg/dLHigh Triglyceride: 200-499 mg/dLVery High Triglyceride: greater than or equal to 5OO mg/dL Cholesterol 251(H) <200 mg/dL [facility] Comment:Desirable Cholestero l: less than 200 mg/dLBorderline High Cholesterol: 200-239 mg/dLHigh Cholesterol: greater than 239 mg/dL LDL Cholesterol Calculated 163(H) <100 mg/dL [facility] Comment:Desirable LDL: less than 100 mg/dLNear Optimal/Above Optimal LDL: 110- 129 mg/dLBorderline High LDL: 130-159 mg/dLHigh LDL: 160-189 mg/dLVery High LDL: greater than or equal to 190 mg/dL HDL Cholesterol 63 >40 mg/dL [facility] Comment:Desirable HDL: great er than 40 mg/dL Note: This HDL assay may give artificially low results in patients with liver disease. Blood Venous blood specimen / Unknown 07/20/2023 9:37 AM EDT 07/20/2023 2:13 PM EDT us [place] Cortez MD LAB BLOOD ORDERABLES Final Resul t [facility] [address] [place] [address] [phone] * HEPATITIS C AB W/REFL TO HCV RNA, QN, PCR (08/19/2021 11:16 AM EDT) HEPATITIS C ANTIBODY NON-REACT YURY NON-REACT YURY [facility] INDEX 0.03 <1.00 [facility] Comment: ?? HCV antibody was non-reactive. There is no laboratory ?? evidence of HCV infection. ?? In most cases, no further action is required. However, if recent HCV exposure is suspected, a test for HCV RNA (test code 63530) is suggested. ?? For additional information please refer to http://education.[employer]/faq/YYT01j2 (This link is being provided for informational/ educational purposes only.) ?? 08/19/2021 11:1 6 AM EDT us Susan Camargo MD HISTORICAL/NON ORDERABLE LAB S Final Result [facility] [address] * 3D DIGITAL MICA SCR MAMMO 1 (01/27/2018 7:04 AM EST) Anatomical Region Laterality Modality Breast Bilateral Mammography 01/27/2018 7:04 AM EST Narrative 01/27/2018 7:07 AM EST Refer to the Notes tab for result details [facility] Procedure: 3D DIGITAL MICA SCR MAMMO 1 Procedure Note ProviderMalik MD - 02/21/2023 Refer to the Notes tab for result details [facility] Procedure: 3D DIGITAL MICA SCR MAMMO 1 us Sheri BARTHOLOMEW IMG BI PROCEDURES Final R esult * HPV mRNA E6/E7 (01/05/2018 10:36 AM EST) HPV mRNA E6/E7 Not Detected NOT DETECTED [facility] Comment: This test was performed using the APTIMA(R) HPV Assay ([employer] This assay detects E6/E7 viral messenger RNA (mRNA) from 14 high-risk HPV types (16,18,31,33,35,39,45,51, 52,56,58,59,66,68). For additional information please refer to: http://MyDocTime.[employer]/faq/MUB596l4 (This link is being provided for informational/ educational purposes only.) Test Performed by [employer] Paula, [facility], [address] [place] [address] Jcarlos Herrera M.D., Ph.D., Director of Laboratories , [facility] [id number] Please note: ??Effective 08/11/2016, HPV testing will be performed using [employer]'s APTIMA test which targets mRNA. Detecting mRNA instead of DNA, as in older methods, offers significant improvements in specificity. 01/05/2018 10:3 6 AM EST us Sheri Winn CNM HISTORICAL/NON ORDERABLE LABS Final Result [facility] [address] from Last 3 Months or Most Recently Relevant to Health Maintenance Insurance [facility] [place] STAND AD[place] Care Teams Vp Software Relationship Specialty Start Date End Date [place] Cortez MD [address] [place] [address] [place] [address] PCP - General Family Medicine 11/12/12
--- OUTSIDE RECORDS SUMMARY | 2025-03-31 13:51 | XMS_ITS | Encounter Summary ---
Author Organization [employer] Address [address] [place] [address] 7 [place] [address] Care Team Providers Care Synthetic Filament Spinner Name Role Phone [place] Cortez MD Primary Care Provider [phone] Reason for Visit * Reason Comments Med Refill Encounter Details Date Type Department Care Team (Late st Contact Info) Description 08/12/2023 Refill [facility] [address] [place] [address] [place] Cortez MD [address] [place] [address] Pain Social History Tobacco Use Types Packs/Day [...] Support [facility] [address] [place], [place] [phone] Abbey Ocampo, RN documented as of this encounter Visit Diagnoses Diagnosis Pain Generalized pain documented in this encounter Care Teams Synthetic Filament Spinner Relationship Specialty Start Date End Date [place] Cortez MD [address] [place] [id number] PCP - General Family Medicine 11/12/12 documented as of this encounter
--- OUTSIDE RECORDS SUMMARY | 2025-03-31 13:52 | XMS_ITS | Encounter Summary ---
Author Organization [employer] Address [address] [facility] 7t [place] [address] Care Team Providers Care Automotive Vehicle Inspector Name Role Phone [place] Cortez MD Primary Care Provider [phone] Encounter Details Date Type Department Care Team (Latest Contact Info) Description 03/27/2025 Travel Social History Tobacco Use Types Packs/Day [...] Description 05/22/2025 9:15 AM EDT Clinical Support [facility] [address] [place] [address] Abbey Ocampo, RN documented as of this encounter Visit Diagnoses Not on filedocumented in this encounter Care Teams Automotive Vehicle Inspector Relationship Specialty Start Date End Date [place] Cortez MD [address] [place] [id number] PCP - General Family Medicine 11/12/12 documented as of this encounter
--- OUTSIDE RECORDS SUMMARY | 2025-03-31 13:52 | XMS_ITS | Encounter Summary ---
Author Organization [employer] Address [address] [place] [address] 7 [place] [address] Care Team Providers Care Filenet Admin Name Role Phone [place] Cortez MD Primary Care Provider [phone] Reason for Visit * Reason Onset Date Comments Referral 12/16/2023 Encounter Details Date Type Department Care Team ([facility] Contact Info) Description 12/16/2023 Telephone [facility] [address] [place], [place] [phone] [place] Cortez MD [address] [place] [address] Referral Social History Tobacco Use Types Packs/Day [...] 11:01 AM EST Tc from [place] with [facility] calling to inform the 2 referral that were sent for left wristdrop on 11/24/23says PT and it should be OT . Please call to clarify at [phone]. . documented in this encounter Plan of Treatment Upcoming Encounters Date Type Department Care Team (Late st Contact Info) Description 05/22/2025 9:15 AM EDT Clinical Support [facility] [address] [place] [address] Abbey Ocampo, ARCHIE documented as of this encounter Visit Diagnoses Not on filedocumented in this encounter Care Teams Filenet Admin Relationship Specialty Start Date End Date [place] Cortez MD [address] [place] [id number] PCP - General Family Medicine 11/12/12 documented as of this encounter
--- OUTSIDE RECORDS SUMMARY | 2025-03-31 13:52 | XMS_ITS | Encounter Summary ---
Author Organization [employer] Address [address] [place] [address] Care Team Providers Care Shoemaking Cutter Name Role Phone [place] Cortez MD Primary Care Provider [phone] Reason for Visit * Reason Comments Med Refill Encounter Details Date Type Department Care Team (Late st Contact Info) Description 11/05/2022 Refill [facility] [address] [place] [address] Yovani Ramires MD [address] [place] [address] Opioid dependence, uncomplicated (CMS/HCC) Social History Tobacco [...] Description 05/22/2025 9:15 AM EDT Clinical Support [facility] [address] [place] [address] Abbey Ocampo, RN documented as of this encounter Visit Diagnoses Diagnosis Opioid dependence, uncomplicated (CMS/HCC) documented in this encounter Care Teams Shoemaking Cutter Relationship Specialty Start Date End Date [place] Cortez MD [address] [place] [address] PCP - General Family Medicine 11/12/12 documented as of this encounter
--- OUTSIDE RECORDS SUMMARY | 2025-03-31 13:52 | XMS_ITS | Encounter Summary ---
Author Organization [employer] Address [address] [facility] 7 [place] [address] Care Team Providers Care Tobacco Sorter Name Role Phone [place] Cortez MD Primary Care Provider [phone] Reason for Visit * Reason Comments OBAT F/U Encounter Details Date Type Department Care Team ([facility] st Contact Info) Description 03/27/2025 9:15 AM EDT Office Visit [facility] [address] [place] [address] Yovani Ramires MD [address] [place] [address] Opioid type dependence, continuous (CMS/HCC) (Primary Dx) Social History Tobacco Use Types Packs/Day Years [...] t he electric, gas, oil or water [employer] threatened to shut off services in your home? No 09/14/2023 Comments No Sex and Gender Information Value Date Recorded Sex Assigned at Female 09/29/2022 10:18 AM EDT Legal Sex Female 10:18 AM EDT Gender Identity Female 09/29/2022 10:18 AM EDT Sexual Orientation Straight 09/29/2022 10 :18 AM EDT documented as of this encounter Progress Notes * Yovani Ramires MD - 03/27/2025 9:15 AM EDT Patient has been in the OBAT program for 16 years 10 months (intake date: 04/2008) Current Suboxone dose of 24/6 mg daily with appointments on a 8-week schedule Behavioral health provider is integrated clinician as needed [place] PAT reviewed by provider COVID Vaccinated. 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 Denies cravings/relapse Suboxone dosing schedule and management of side effects reviewed RTC in 9 weeks as scheduled TODAY VISIT 03/27/2025 UTOX: POS BUP ONLY NEG FOR ALL OTHER SUBSTANCES Patient presents for OUD OBAT visit Sister undergoing breast CA treatment Struggling with her chronic pain (neck and shoulders) Scheduled to have left shoulder surgery 08/09/2025 Long overdue for mammogram (willing to go now) Helps out with care of grandchildren (one with autism); one in and the other middle school Mother 2 years ago due to dementia complications 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 The patient is not nervous/anxious. Physical Exam Constitutional: Appearance: Normal appearance. Pulmonary: Effort: Pulmonary effort is normal. Neurological: Mental Status: She is alert. Psychiatric: Mood and Affect: Mood normal. Behavior: Behavior normal. Darlin was seen today for obat f/u. Diagnoses and all orders for this visit: Opioid type dependence, continuous (CMS/HCC) (Primary) - POCT JUANI-14 Urine Drug Screen Patient presents for a routine OUD OBAT visit Here 1 week early as she will assist with her sister's medical appointment next week Discussed treatment options for opioid dependence Patient is tolerating current treatment of Buprenorphine/Naloxone SL Continue at Buprenorphine/Naloxone to 8mg/2mg SL TID dosing Recent LFT within normal Discussed behavioral modification and accessing services Counseling provided with a focus on support system, tools for achieving/maintaining recovery Reviewed barriers for these goals Discussed strategies to address when faced situations that may trigger use Continue with current visit schedule Narcan use discussed [place] Reviewed risk assessment for family planning, STI and PrEP Follow up in 8 weeks as scheduled This information has been disclosed to you [...] 9:15 AM EDT Clinical Support [facility] [address] [place] [address] [place] Ocampo RN documented as of this encounter Procedures Procedure Name Priority Date/Time Associated Diagnosis Comments POCT JUANI-14 URINE DRUG SCREEN Routine 03/27/2025 9:29 AM EDT Opioid type dependence, continuous (CMS/HCC) documented in this encounter Results * POCT JUANI-14 Urine Drug Screen (03/27/2025 9:29 AM EDT) THC Negative Cocaine Screen, Urine Negative Opiate [...] documented in this encounter Visit Diagnoses Diagnosis Opioid type dependence, continuous (CMS/HCC)- Primary Opioid type dependence, continuous documented in this encounter Care Teams Tobacco Sorter Relationship Specialty Start Date End Date [place] Cortez MD [address] [place] [address] PCP - General Family Medicine 11/12/12 documented as of this encounter
== END 2025-03-31 13:37 | disposition home or self-care (01) ==
LOC: HO.CT 13:36
PROVIDERS: PCP Student in an Organized Health Care Education/Training Program; Visit Provider Orthopaedic Surgery
DX: M19.012 Primary osteoarthritis, left shoulder (principal); M87.022 Idiopathic aseptic necrosis of left humerus
CPT/HCPCS: 73200

== ENCOUNTER → 2025-03-31 13:38 | Outpatient (BNV) | payer MEDICAID, SELFPAY | PROVIDERS: PCP Student in an Organized Health Care Education/Training Program; Visit Provider Radiology Diagnostic Radiology | DX: M19.012 Primary osteoarthritis, left shoulder (principal); M75.102 Unspecified rotator cuff tear or rupture of left shoulder, not specified as traumatic | CPT/HCPCS: 73200 ==

== ENCOUNTER → 2025-07-11 08:53 | Outpatient (BNVA) | payer MEDICAID, SELFPAY | PROVIDERS: PCP Student in an Organized Health Care Education/Training Program | DX: Z01.818 Encounter for other preprocedural examination (principal) ==

== ENCOUNTER 2025-07-18 | Outpatient (REF) | payer MEDICAID, SELFPAY ==
--- OUTSIDE RECORDS SUMMARY | 2025-06-05 12:37 | XMS_ITS | Encounter Summary ---
Author Organization [employer] Address [address] [place] [address] [address], [place] [address] Care Team Providers Care Legal Financial Specialist Name Role Phone [place] Cortez MD Primary Care Provider [phone] Reason for Visit * Reason Comments Med Refill Encounter Details Date Type Department Care Team ([facility] Contact Info) Description 08/12/2023 Refill [facility] PED[facility] [address] [place] [address] [place] Cortez MD [address] [place] [address] Pain Social History Tobacco Use Types Packs/Day [...] Care Team (Late st Contact Info) Description 06/05/2025 2:15 PM EDT Telemedicine [facility] [address] [place], [place] [phone] Yovani Ramires MD [address] [place] [address] Arrived 07/12/2025 9:45 AM EDT Office Visit [facility] [address] [place], [place] [phone] Jasmin Buckner MD [address] [place] [address] 07/17/2025 9:30 AM EDT Clinical Support [facility] [address] [place] [address] Abbey Ocampo, RN documented as of this encounter Visit Diagnoses Diagnosis Pain Generalized pain documented in this encounter Care Teams Legal Financial Specialist Relationship Specialty Start Date End Date [place] Cortez MD [address] [place] [phone] PCP - General Family Medicine 11/12/12 documented as of this encounter
[2025-07-18 13:13] VITALS: BP 144/67; PULSE 61; RESP 16; O2SAT 97; BMI 28.5
--- NOTE | 2025-07-18 13:37 | HO.ANESPROP2 ---
HPI - Anesthesia Eval Consult details Narrative: 64yo F for Left REVERESE Shoulder Total Arthroplasty, 08/09/25 Medical clearance pending No recent illness No CP/SOB with walking ~ 15 minutes before SOB, able to do housework/yardwork without symptoms Suboxone 8mg TID for hx OUD for 16 years. Plan for BID for 2-3 days preop. Will hold or take 1/2 film DOS. Activie smoker 50+ years: productive cough, unsure of color. Rare albuterol use. Instructed on cough and deep breathing multiple times daily preop PMFSH Active Problems Active Problems: All Active Problems Avascular necrosis of left humeral head (Acute) Rotator cuff arthropathy of left shoulder (Acute) Osteoarthritis of left shoulder (Acute) Internal derangement of left shoulder (Acute) Past Medical History Medical History (Updated 07/18/25 @ 13:24 by Verito Yu RN) Arthritis Pain in left shoulder Smoker Depression Anxiety Hypothyroidism Family History Family history of problems with anesthesia: No Surgical History Surgical History (Updated 07/18/25 @ 13:13 by Verito Yu RN) Hx of hysterectomy (~2014) History of Problems with Anesthesia: No Social History Social History (Updated 07/18/25 @ 13:24 by Verito Yu RN) Household Members: Significant Other Housing: House Are you a primary field care manager to a significant other at home: No Do you presently have visiting nurse or other home services: No 75 years or older and lives alone: No Patient Tobacco Use Status: Current everyday Tobacco user Tobacco use type: Cigarette Cigarettes Per Day: 15 Years Smoked: 50 Second Hand Smoke Exposure: No Substance Use Type: Former Substance User and Opiates Meds Allergies Allergy/AdvReac Type Severity Reaction Status Date / Time No Known Allergies Allergy Verified 07/18/25 13:11 Home Medications ?Medication ?Instructions ?Recorded ?Confirmed ?Last Taken ?Type levothyroxine 112 mcg tablet 112 mcg PO DAILY 11/11/24 07/18/25 Unknown History meloxicam 15 mg tablet 15 mg PO QAM 11/11/24 07/18/25 Unknown History paroxetine HCl 30 mg tablet 30 mg PO DAILY 11/11/24 07/18/25 Unknown History albuterol sulfate 90 mcg/actuation 2 puff inhalation Q4H PRN wheezing 07/18/25 07/18/25 Unknown History aerosol inhaler (Ventolin HFA) buprenorphine 8 mg-naloxone 2 mg 1 film sublingual TID 07/18/25 07/18/25 Unknown History sublingual film (Suboxone) Exam Height,Weight and Vital Signs: Height 5 ft 1 in Weight 68.492 kg Last Vital Signs Pulse 61 07/18/25 13:13 Resp 16 07/18/25 13:13 BP 144/67 H 07/18/25 13:13 Pulse Ox 97 07/18/25 13:13 O2 Del Method Room Air 07/18/25 13:13 Airway TM Dist: >3cm Neck ROM: Full Loose/Missing/Broken Teeth: No Heart: RRR Lungs: Dim throughout Assessment and Plan Assessment Anesthesia Assessment: Anesthesia Plan Discussed, Smoking Cess. Discussed and PAT Visit Final Anesthetic Review Family History of Problems with Anesthesia: No History of Problems with Anesthesia: No
[2025-07-18 15:09] LABS: MRSA Nasal PCR NEGATIVE (Negative); SA Nasal PCR NEGATIVE (Negative)
[2025-08-03 10:50] LABS: Hematocrit 44.4 % (37.0-47.0); Hemoglobin 14.4 g/dl (12.0-16.0); Mean Corpuscular HGB Conc 32.4 g/dl (31.0-35.0); Mean Corpuscular Hemoglobin 31.0 pg (27.0-33.0); Mean Corpuscular Volume 95.7 fL (80.0-98.0); NRBC Abs Auto 0.000 X10*3/uL (0.0-0.012); NRBC Pct Auto 0.0 /100WBC (0.0-0.2); Platelet Count 214 X10*3/uL (160-400); Red Blood Count 4.64 X10*6/uL (4.20-5.50); White Blood Count 7.0 X10*3/uL (4.8-10.8)
[2025-08-03 10:58] LABS: Hemoglobin A1C 138.6429 umol/L; Total Hemoglobin (HGBA1C) 3786.1837 umol/L
[2025-08-03 11:24] LABS: Anion Gap 10 (12-20); Blood Urea Nitrogen 14 mg/dL (9-16); Calcium 9.3 mg/dL (8.4-10.2); Carbon Dioxide 32 mmol/L (22-29); Chloride 102 mmol/L (96-108); Creatinine Clr Calc Pharmacy 83.6; Estimated Glomerular Filt Rate > 60; Potassium 4.2 mmol/L (3.3-5.1); Sodium 140 mmol/L (135-145)
--- OUTSIDE RECORDS SUMMARY | 2025-09-11 09:07 | XMS_ITS | Encounter Summary ---
Author Organization [employer] Address [address] [facility] 7t [place] [address] Care Team Providers Care Slot Floor Supervisor Name Role Phone Marion Cortez MD Primary Care Provider [phone] Reason for Visit * Reason Onset Date Comments Nurse Triage 09/14/2024 Encounter Details Date Type Department Care Team ([facility] st Contact Info) Description 09/14/2024 Telephone [facility] [address] [place] [address] Marion Cortez MD [address] [place] [address] Nurse Triage Social History Tobacco Use Types [...] Care Team (Late st Contact Info) Description 09/11/2025 10:00 AM EDT Clinical Support [facility] [address] [place] [address] Abbey Ocampo RN 11/06/2025 9:00 AM EST Office Visit [facility] [address] [place] [address] Yovani Ramires MD [address] [place] [address] documented as of this encounter Visit Diagnoses Not on filedocumented in this encounter Care Teams Slot Floor Supervisor Relationship Specialty Start Date End Date Marion Cortez MD [address] [place] [address] PCP - General Family Medicine 11/12/12 documented as of this encounter
--- OUTSIDE RECORDS SUMMARY | 2025-09-11 09:07 | XMS_ITS | Encounter Summary ---
Author Organization [email or web address] Address [address] [facility] 7t [place] [address] Care Team Providers Care Cover Marker Name Role Phone Marion Cortez MD Primary Care Provider [phone] Reason for Visit * Reason Onset Date Comments Pre-op Exam 05/05/2025 Encounter Details Date Type Department Care Team ([facility] Contact Info) Description 05/05/2025 Telephone [facility] [address] [place] [address] Marion Cortez MD [address] [place], [place] [phone] Pre-op Exam (/) Social History Tobacco Use Types Packs/Day Years Used Date Smoking Tobacco: Every Day Cigarettes Passive Smoke Exposure: Current Smokeless Tobacco: Never Housing Stability Answer Date Recorded What is your housing situation today? I have ahyde escalante 09/14/[address] you [...] - 05/05/2025 10:51 AM EDT Sakina at [facility] orthopedic agreed to pre op appointment on 07/12/25 at 09:45AM With . Appointment reminder letter mailed * Telephone Encounter - Silvina Schmitz - 05/05/2025 10:36 AM EDT Date of Surgery: 08/09/2025 Surgical procedure being done: Left reverse total shoulder replacement Type of anesthesia: General Lab needed: Yes EKG: Yes Surgeon's name: Beto Good Facility name: [facility] Surgeon's office number: [phone] Surgeon's office fax number: [phone] Contact name (person you spoke with): Sakina Last office note from surgeon requested: Yes Send Message to Vivian Ortiz and Killian Hay documented in this encounter Plan of Treatment Upcoming Encounters Date Type Department Care Team (Late st Contact Info) Description 09/11/2025 10:00 AM EDT Clinical Support [facility] [address] [place] [address] Abbey Ocampo RN 11/06/2025 9:00 AM EST Office Visit [facility] [address] [place] [address] Yovani Ramires MD [address] [place] [phone] documented as of this encounter Visit Diagnoses Not on filedocumented in this encounter Care Teams Cover Marker Relationship Specialty Start Date End Date Marion Cortez MD [address] [place] [phone] PCP - General Family Medicine 11/12/12 documented as of this encounter
--- OUTSIDE RECORDS SUMMARY | 2025-09-11 09:07 | XMS_ITS | Encounter Summary ---
Author Organization [employer] Address [address] [place] [address], [place] [address] Care Team Providers Care Ice Seller Name Role Phone Marion Cortez MD Primary Care Provider [phone] Reason for Visit * Reason Comments Med Refill Encounter Details Date Type Department Care Team (Late st Contact Info) Description 08/12/2023 Refill [facility] [address] [place] [address] Marion Cortez MD [address] [place] [address] Pain Social History Tobacco Use Types Packs/Day [...] Description 09/11/2025 10:00 AM EDT Clinical Support [facility] [address] [place] [address] Abbey Ocampo RN 11/06/2025 9:00 AM EST Office Visit [facility] [address] [place] [address] Yovani Ramires MD [address] [place] [address] [phone] documented as of this encounter Visit Diagnoses Diagnosis Pain Generalized pain documented in this encounter Care Teams Ice Seller Relationship Specialty Start Date End Date Marion Cortez MD [address] [place] [phone] PCP - General Family Medicine 11/12/12 documented as of this encounter
--- OUTSIDE RECORDS SUMMARY | 2025-09-11 09:07 | XMS_ITS | Encounter Summary ---
Author Organization [employer] Address [address] [place] [address] [address] [place] [address] Care Team Providers Care Life Insurance Underwriter Name Role Phone Marion Cortez MD Primary Care Provider Reason for Visit * Reason Comments Med Refill Encounter Details Date Type Department Care Team (Late st Contact Info) Description 11/05/2022 Refill [facility] MEDICINE [address] [place] [address] [phone] Yovani Ramires MD [address] [place] [address] [phone] Opioid dependence, uncomplicated (CMS/HCC) Social History Tobacco [...] Description 09/11/2025 10:00 AM EDT Clinical Support [facility] MED & PEDS [address] [place], [place] [phone] Abbey Ocampo RN 11/06/2025 9:00 AM EST Office Visit [facility] MED & PEDS [address] [place], [place] [phone] Yovani Ramires MD [address] [place] [address] [phone] documented as of this encounter Visit Diagnoses Diagnosis Opioid dependence, uncomplicated (CMS/HCC) (HCC) documented in this encounter Care Teams Life Insurance Underwriter Relationship Specialty Start Date End Date Marion Cortez MD [address] [place] [address] PCP - General Family Medicine 11/12/12 documented as of this encounter
--- OUTSIDE RECORDS SUMMARY | 2025-09-11 09:07 | XMS_ITS | Encounter Summary ---
Author Organization [employer] Address [address] [facility] 7t [place] [address] Care Team Providers Care Sprigger Name Role Phone Marion Cortez MD Primary Care Provider [phone] Reason for Visit * Reason Onset Date Comments Med Refill 09/06/2025 Encounter Details Date Type Department Care Team ([facility] st Contact Info) Description 09/06/2025 Refill [facility] MED & PEDS [address] [place] [address] Marion Cortez MD [address] [place] [address] Social History Tobacco Use Types Packs/Day Years Used Date Smoking Tobacco: Every Day Cigarettes Passive Smoke Exposure: Current Smokeless Tobacco: Never Depression Answer Date Recorded Patient Health Questionnaire-9 Score 8 08/07/2025 Patient Health Questionnaire-9 Score 8 08/07/2025 Last PHQ-9: Questionnaire Data Not on file 0 08/07/2025 Housing Stability Answer Date Recorded What is [...] off services in your home? No 07/28/2025 Depression Answer Date Recorded Patient Health Questionnaire-2 Score 4 08/07/2025 Internet Access Answer Date Recorded Internet Access [...] encounter Miscellaneous Notes * Telephone Encounter - Janine Miller LPN - 09/06/2025 11:49 AM EDT Last seen 08/07/25. documented in this encounter Plan of Treatment Upcoming Encounters Date Type Department Care Team (Late st Contact Info) Description 09/11/2025 10:00 AM EDT Clinical Support [facility] MED & PEDS [address] [place] [address] Abbey Ocampo, RN 11/06/2025 9:00 AM EST Office Visit [facility] MED & PEDS [address] [place] [address] Yovani Ramires MD [address] [place] [phone] documented as of this encounter Goals Goal Patient Goal Type Associated Problems Recent Progress Patient-Stated? Author Prepare for and recovery fully from upcoming surgery. General On track(07/17/20 10:13 AM EDT) Yes Abbey Ocampo, RN documented as of this encounter Visit Diagnoses Not on filedocumented in this encounter Additional Health Concerns Assessment Noted Time PHQ-9 Depression Total Score: 8 08/07/20 11:13 AM EDT documented as of this encounter Care Teams Sprigger Relationship Specialty Start Date End Date Marion Cortez MD [address] [place] [phone] PCP - General Family Medicine 11/12/12 documented as of this encounter
--- OUTSIDE RECORDS SUMMARY | 2025-09-11 09:07 | XMS_ITS | Encounter Summary ---
Author Organization [employer] Address [address] [facility] 7t [place] [address] Care Team Providers Care Field Contractor Name Role Phone Marion Cortez MD Primary Care Provider [phone] Reason for Visit * Reason Onset Date Comments Med Refill 09/05/2025 Encounter Details Date Type Department Care Team (Late st Contact Info) Description 09/05/2025 Refill [facility] MEDICINE [address] [place] [address] Abbey Ocampo, ARCHIE Opioid dependence, uncomplicated (CMS/HCC) ([facility]) Social History Tobacco Use Types Packs/Day Years [...] Description 09/11/2025 10:00 AM EDT Clinical Support [facility] MED & PEDS [address] [place] [address] Abbey Ocampo RN 11/06/2025 9:00 AM EST Office Visit [facility] MED & PEDS [address] [place] [address] Yovani Ramires MD [address] [place] [address] documented as of this encounter Goals Goal Patient Goal Type Associated Problems Recent Progress Patient-Stated? Author Prepare for and recovery fully from upcoming surgery. General On track(07/17/20 10:13 AM EDT) Yes Abbey Ocampo RN documented as of this encounter Visit Diagnoses Diagnosis Opioid dependence, uncomplicated (CMS/HCC) (HCC) documented in this encounter Additional Health Concerns Assessment Noted Time PHQ-9 Depression Total Score: 8 08/07/20 25 11:13 AM EDT documented as of this encounter Care Teams Field Contractor Relationship Specialty Start Date End Date Marion Cortez MD [address] [place] [address] PCP - General Family Medicine 11/12/12 documented as of this encounter
--- OUTSIDE RECORDS SUMMARY | 2025-09-11 09:07 | XMS_ITS | Encounter Summary ---
Author Organization [employer] Address [address] [facility] 7[address] [place] [address] Care Team Providers Care Applications Consultant Name Role Phone Marion Cortez MD Primary Care Provider [phone] Reason for Visit * Reason Comments Med Refill Encounter Details Date Type Department Care Team ([facility] Contact Info) Description 07/08/2025 Refill [facility] CHC MED & PEDS [address] [place], [place] [phone] Marion Cortez MD [address] [place] [address] Uncomplicated asthma, unspecified asthma severity, unspecified whether [...] Description 09/11/2025 10:00 AM EDT Clinical Support [facility] MED & PEDS [address] [place] [address] Abbey Ocampo, RN 11/06/2025 9:00 AM EST Office Visit [facility] MED & PEDS [address] [place] [address] Yovani Ramires MD [address] [place] [address] documented as of this encounter Goals Goal Patient Goal Type Associated Problems Recent Progress Patient-Stated? Author Prepare for and recovery fully from upcoming surgery. General On track(07/17/20 10:13 AM EDT) Yes Abbey Ocampo, RN documented as of this encounter Visit Diagnoses Diagnosis Uncomplicated asthma, unspecified asthma severity, unspecified whether persistent documented in this encounter Care Teams Applications Consultant Relationship Specialty Start Date End Date Marion Cortez MD [address] [place] [address] PCP - General Family Medicine 11/12/12 documented as of this encounter
--- OUTSIDE RECORDS SUMMARY | 2025-09-11 09:07 | XMS_ITS | Encounter Summary ---
Author Organization [employer] Address [address] [facility] 7 [place] [address] Care Team Providers Care Communication Technician Name Role Phone Marion Cortez MD Primary Care Provider [phone] Reason for Visit * Reason Onset Date Comments Referral 12/16/2023 Encounter Details Date Type Department Care Team ([facility] st Contact Info) Description 12/16/2023 Telephone C [facility] MED & PEDS [address] [place], [place] [phone] Marion Cortez MD [address] [place] [address] Referral Social History Tobacco Use Types Packs/Day [...] 11:01 AM EST Tc from [place] with [facility] calling to inform the 2 referral that were sent for left wristdrop on 11/24/23says PT and it should be OT . Please call to clarify at [phone]. . documented in this encounter Plan of Treatment Upcoming Encounters Date Type Department Care Team (Late st Contact Info) Description 09/11/2025 10:00 AM EDT Clinical Support [facility] MED & PEDS [address] [place] [address] Abbey Ocampo RN 11/06/2025 9:00 AM EST Office Visit [facility] MED & PEDS [address] [place] [address] Yovani Ramires MD [address] [place] [phone] documented as of this encounter Visit Diagnoses Not on filedocumented in this encounter Care Teams Communication Technician Relationship Specialty Start Date End Date Marion Cortez MD [address] [place] [address] PCP - General Family Medicine 11/12/12 documented as of this encounter
--- OUTSIDE RECORDS SUMMARY | 2025-09-11 09:07 | XMS_ITS | Clinical Summary ---
Author Organization [employer] Address [address] [facility] 7t [place] [address] Care Team Providers Care Couturiere Name Role Phone Marion Cortez MD Primary Care Provider [phone] Allergies No known active allergies Medications albuterol (2.5 MG/3ML) 0.083% nebulizer solution inhale 3 milliliter by nebulization route every 4 - 6 hours 015 Active naloxone (Narcan) 4 mg/0.1 mL nasal [...] EVERY DAY 90 tablet 1 025 Active albuterol (Ventolin HFA) 108 (90 Base) MCG/ACT inhalerIndicatio ns:Uncomplicated asthma, unspecified asthma severity, unspecified whether persistent INHALE TWO PUFFS BY MOUTH EVERY 4 HOURS NEEDED FOR WHEEZING 18 g 1 025 Active PARoxetine (Paxil) 30 MG tabletIndication s:Depression, unspecified depression type TAKE 1 TABLET BY MOUTH EVERY DAY 30 tablet 11 025 Active Buprenorphine HCl-Naloxone HCl (Suboxone) 8-2 MG SL filmIndications: Opioid dependence, uncomplicated (CMS/HCC) ([facility]) Place 1 Film under the tongue 3 times daily. Do not start before September 11, 2025. 84 Film 1 025 2024 Active celecoxib (CeleBREX) 50 MG capsule TAKE 1 CAPSULE BY MOUTH TWICE A DAY 60 capsule 025 Active Buprenorphine HCl-Naloxone HCl (Suboxone) 8-2 MG SL filmIndications: Opioid dependence, uncomplicated (CMS/HCC) ([facility]) Place 1 Film under the tongue 3 times daily. Do not start before July 17, 2025. 84 Film 1 025 2024 Discontinued(R eorder (will not trigger notification to Pharmacy)) celecoxib (CeleBREX) 50 MG capsule Take 1 capsule (50 mg) by mouth 2 times daily. 60 capsule 025 2024 Discontinued(R eorder (will not trigger notification to Pharmacy)) Active Problems Problem Noted Date Diagnosed Date Tobacco dependence syndrome 08/07/2015 Opioid dependence 01/25/2013 Ganglion cyst 04/01/2012 Hypothyroidism 04/01/2012 Postmenopausal bleeding 04/01/2012 Encounters Date Type Department Care Team Description 09/06/2025 Refill [facility] [address] [place] [address] Marion Cortez MD 09/06/2025 Refill [facility] [address] [place] [address] Ebony Fields MD Opioid dependence, uncomplicated (CMS/HCC) ([facility]) 09/05/2025 Refill [facility] [address] [place] [address] Abbey Ocampo, ARCHIE Opioid dependence, uncomplicated (CMS/HCC) ([facility]) 08/07/2025 11:00 AM EDT Office Visit [facility] [address] [place] [address] Marion Cortez MD Arthralgia, unspecified joint (Primary Dx); Uncomplicated asthma, unspecified asthma severity, unspecified whether persistent; Depression, unspecified depression type; Tobacco dependence syndrome 08/07/2025 Travel 08/04/2025 Telephone [facility] [address] [place] [address] Marion Cortez MD chart prep 08/04/2025 Refill [facility] [address] [place] [address] Marion Cortez MD Uncomplicated asthma, unspecified asthma severity, unspecified whether persistent; Depression, unspecified depression type 08/03/2025 Orders Only GENERIC EXTERNAL DATA DEPARTMENT Provider, Generic External Data 07/28/2025 Patient Outreach [address] [address] Marion Cortez MD Pre-visit Planning (SDOH screening negative and Tobacco screening positive) 07/18/2025 Orders Only GENERIC EXTERNAL DATA DEPARTMENT Provider, Generic External Data 07/17/2025 9:30 AM EDT Clinical Support [facility] [address] [place] [address] Abbey Ocampo RN Opioid dependence, uncomplicated (CMS/HCC) (Primary Dx) 07/17/2025 Travel 07/14/[address] [address] Abbey Ocampo RN Opioid dependence, uncomplicated (CMS/HCC) 07/12/2025 9:45 AM EDT Office Visit [facility] [address] [place] [address] Jasmin Buckner MD Preop examination (Primary Dx); Hypothyroidism, unspecified type; Opioid dependence in remission (CMS/HCC) 07/12/2025 Travel 07/10/2025 Travel 07/08/2025 Refill [facility] [address] [place] [address] Marion Cortez MD Uncomplicated asthma, unspecified asthma severity, unspecified whether persistent from Last 3 Months Immunizations Immunization Administration [...] uit: Not Asked; Counseling Given: Not Answered Depression Answer Date Recorded Patient Health Questionnaire-9 [...] Sign Reading Time Taken Comments Blood Pressure 153/79 08/07/2025 11:13 AM EDT Pulse 68 08/07/2025 11:13 AM EDT Temperature 36.3 C (97.3 F) 08/07/2025 11:13 AM EDT Respiratory Rate 18 08/07/2025 11:13 AM EDT Oxygen Saturation 93% 11/03/2024 10:06 AM EST Inhaled Oxygen Concentration - - Weight 67.6 kg (149 lb) 08/07/2025 11:13 AM EDT Height 154.9 cm (5' 1 ) 08/07/2025 11:13 AM EDT Body Mass Index 28.15 08/07/2025 11:13 AM EDT Plan of Treatment Upcoming Encounters Date Type Department Care Team (Late st Contact Info) Description 09/11/2025 10:00 AM EDT Clinical Support [facility] [address] [place] [address] Abbey Ocampo RN 11/06/2025 9:00 AM EST Office Visit [facility] [address] [place] [address] Yovani Ramires MD [address] [place] [address] Health Maintenance Due Date Last Done Comments CT Colonography 1961 Colonoscopy 1961 Colorectal Cancer Screening 1961 Dental Oral Exam 1961 Dental Prophylaxis 1961 Dental X-Ray: Full Mouth 1961 FIT DNA/Cologuard 1961 FIT 1961 FOBT 1961 HIV Screening 1961 Sigmoidoscopy 1961 Pneumococcal Vaccine: 50+ Years (1 of 2 [...] Additional history exists Disability Screening 07/10/2026 07/10/2025 SDOH Screening 07/28/2026 07/28/2025 Alcohol/Substance Use Screening 08/07/2026 08/07/2025 Depression Screening 08/07/2026 08/07/2025, 08/07/20 Tobacco Screening 08/07/2026 08/07/2025 Lipid Panel 07/20/2028 07/20/2023 Hepatitis C Screening [...] Procedure Name Priority Date/Time Associated Diagnosis Comments BASIC METABOLIC PANEL Routine 08/03/2025 10:23 AM EDT HEMOGLOBIN A1C Routine 08/03/2025 10:23 AM EDT CBC Routine 08/03/2025 10:23 AM EDT TYPE AND SCREEN Routine 08/03/2025 10:20 AM EDT TSH W/REFLEX TO FT4 Routine 07/18/2025 2 [...] Routine 07/12/2025 12:26 PM EDT Preop examination BITEWING - SINGLE RADIOGRAPHIC IMAGE Routine 08/19/2023 [...] Recently Relevant to Health Maintenance Results * CBC (08/03/2025 10:23 AM EDT) White Blood Count 7.0 4.8 - 10.8 X10*3/uL [facility] Red Blood Count 4.64 4.20 - 5.50 X10*6/uL [facility] Hemoglobin 14.4 12.0 - 16.0 g/dl [facility] Hematocrit 44.4 37.0 - 47.0 % [facility] Mean Corpuscular Volume 95.7 80.0 - 98.0 fL [facility] Mean Corpuscular Hemoglobin 31.0 27.0 - 33.0 pg [facility] Mean Corpuscular HGB Conc 32.4 31.0 - 35.0 g/dl [facility] Red Cell Distribution Width 13.4 11.0 - 16.0 % [facility] Platelet Count 214 160 - 400 X10*3/uL [facility] Mean Platelet Volume 9.7 9.4 - 12.3 fL [facility] NRBC Pct Auto 0.0 0.0 - 0.2 /100WBC [facility] NRBC Abs Auto 0.000 0.0 - 0.012 X10*3/uL [facility] 08/03/2025 10:2 3 AM EDT 08/03/2025 10:23 AM EDT us Generic External Data Provider LAB BLOOD ORDERAB LES Final Result [facility] [address] [place] [phone] [phone] * Hemoglobin A1c (08/03/2025 10:23 AM EDT) Hemoglobin A1c 5.5 <6.0 % [facility] Comment:Hemoglobin A1C Refer ence Range Adults: 4.8 - 6.0 % Non diabetic: < 6.0 % Goal: < 7.0 %Additional Action Suggested: > 8.0 %Note: Hemoglobin A1c results are invalid for patients with abnormal amounts of HbF. Blood transfusions may impact the HbA1c concentration in the patient sample. Estimated Average Glucose 111 mg/dL [facility] Comment:eAG = Estimated ave rage glucose which is %A1C expressed asaverage glucose, using the formula of the E8A-WwikrqfYlwyhxb Glucose study (ADAG), Diabetes Care, Vol.31,#8,2007 08/03/2025 10:2 3 AM EDT 08/03/2025 10:23 AM EDT us Generic External Data Provider LAB BLOOD ORDERAB LES Final Result [facility] [address] [place] [address] [phone] * (ABNORMAL) Basic Metabolic Panel (08/03/2025 10:23 AM EDT) Only the most recent of2 resultswithin the time period is included. Sodium 140 135 - 145 mmol/L [facility] Potassium 4.2 3.3 - 5.1 mmol/L [facility] Chloride 102 96 - 108 mmol/L [facility] Carbon Dioxide 32(H) 22 - 29 mmol/L [facility] Anion Gap 10(L) 12 - 20 [facility] Urea Nitrogen (BUN) 14 9 - 16 mg/dL [facility] Creatinine, Serum 0.61 0.5 - 1.4 mg/dL [facility] Creatinine Clr Calc Pharmacy 83.6 [facility] Comment:Provided height and weight: 154.94 cm,68.492 kg.eGFR (calculated from the MDRD study equation) and eCrCl(calculated from the Cockcroft-Gault equation) are based ondifferent parameters and may not yield comparable results.If eCrCl result is absurd, please check patient'sheight/weight. Estimated Glomerular Filt Rate >60 [facility] Comment:Chronic Kidney Disea se: Estimated GFR < 60 mL/min/1.83e3Btdsrp Kidney Disease: Estimated GFR < 15 mL/min/1.73m2 Glucose 98 60 - 115 mg/dL [facility] Calcium 9.3 8.4 - 10.2 mg/dL [facility] 08/03/2025 10:2 3 AM EDT 08/03/2025 10:23 AM EDT us Generic External Data Provider LAB BLOOD ORDERAB LES Final Result Performing Organization Address [facility] Co de Phone Number [facility] [address] [place] [phone] * Type and screen (08/03/2025 10:20 AM EDT) Blood Type OP [facility] Antibody Screen NEGATIVE [facility] 08/03/2025 10:2 0 AM EDT 08/03/2025 10:52 AM EDT Narrative [facility] - 08/03/2025 11:58 AM EDT Spec expiration changed by ARIEL on 08/03/25Reason: PATNURSING:Call Blood Bank (ext. [phone]) to band patient on admission.Type and Screen in effect until 2300 on 08/09/25WITNESSED BY PORTERS us Generic External Data Provider LAB BLOOD BANK TE ST ORDERABLES Final Result Performing Organization Address [facility] de Phone Number [facility] [address] [place] [phone] * TSH W/Reflex to FT4 (07/18/2025 2:10 PM EDT) Pathologist [facility] TSH reflex Free T4 2.01 0.32 - 4.0 uIU/mL [facility] Blood Venous blood specimen / Unknown 07/18/2025 2:10 PM EDT 07/18/2025 2:10 PM EDT us Jasmin Buckner MD LAB BLOOD ORDERABLES Final Re sult Performing Organization Address [facility] Co de Phone Number [facility] [address] [place] [address] [phone] * CBC auto differential (07/18/2025 2:10 PM EDT) White Blood Count 6.7 4.8 - 10.8 X10*3/uL [facility] Red Blood Count 4.53 4.20 - 5.50 X10*6/uL [facility] Hemoglobin 14.1 12.0 - 16.0 g/dl [facility] Hematocrit 44.0 37.0 - 47.0 % [facility] Mean Corpuscular Volume 97.1 80.0 - 98.0 fL [facility] Mean Corpuscular Hemoglobin 31.1 27.0 - 33.0 pg [facility] Mean Corpuscular HGB Conc 32.0 31.0 - 35.0 g/dl [facility] Red Cell Distribution Width 13.3 11.0 - 16.0 % [facility] Platelet Count 206 160 - 400 X10*3/uL [facility] Mean Platelet Volume 9.5 9.4 - 12.3 fL [facility] Neutrophils Percent Auto 54.9 45 - 73 % [facility] Imm Gran Pct Auto 0.1 0.0 - 0.4 % [facility] Lymphocytes Percent Auto 33.1 20 - 40 % [facility] Monocytes Percent Auto 7.9 2 - 11 % [facility] Eosinophils Percent Auto 3.1 0 - 4 % [facility] Basophils Percent Auto 0.9 0 - 2 % [facility] NRBC Pct Auto 0.0 0.0 - 0.2 /100WBC [facility] Neutrophils Absolute Auto 3.7 2.0 - 8.3 x10*3/uL [facility] Imm Gran Abs Auto 0.01 0.00 - 0.03 X10*3/uL [facility] Lymphocytes Absolute Auto 2.2 1.2 - 4.9 X10*3/uL [facility] Monocytes Absolute Auto 0.5 0.1 - 1.2 X10*3/uL [facility] Eosinophils Absolute Auto 0.2 0.0 - 0.4 X10*3/uL [facility] Basophils Absolute Auto 0.1 0.0 - 0.2 X10*3/uL [facility] NRBC Abs Auto 0.000 0.0 - 0.012 X10*3/uL [facility] Blood Venous blood specimen / Unknown 07/18/2025 2:10 PM EDT 07/18/2025 2:10 PM EDT Jasmin Buckner MD LAB BLOOD ORDERABLES Final Re sult Performing Organization Address [facility]/ZIP Co de Phone Number [facility] [address] [place] [phone] * (ABNORMAL) Prothrombin Time-INR (07/18/2025 2:10 PM EDT) Prothrombin Time 10.7(L) 10.9 - 12.4 SEC [facility] INTERNATIONAL NORM RATIO 0.9 0.9 - 1.1 [facility] Comment:INTERNATIONAL NORMAL IZED RATIO (INR) REFERENCE [...] ORDERABLES Final Re sult Performing Organization Address City/[facility]/ZIP Co de Phone Number [facility] [address] [place] [phone] * MRSA Nasal Screen (07/18/2025 1:30 PM EDT) MRSA Nasal PCR NEGATIVE Negative [facility] SA Nasal PCR NEGATIVE Negative [facility] MRSA Interpretation SEE NOTE [facility] Comment:MRSA target DNA not detected; SA target DNA not detected.A MRSA NEGATIVE, SA NEGATIVE test result does not precludeMRSA or SA nasal colonization. 07/18/2025 1:30 PM EDT 07/18/2025 2:00 PM EDT Generic External Data Provider LAB MICROBIOLOGY - GENERAL ORDERABLES Final Result [facility] [address] [place] [phone] * (ABNORMAL) POCT JUANI-14 Urine Drug Screen (07/17/2025 9:51 AM EDT) THC Negative Negative Cocaine Screen, Urine Negative [...] Unknown 07/17/2025 9:51 AM EDT Samia Singh DONOR RECRUITER POINT OF CARE TEST ENTER/EDIT ORDERABLES Final Result * ECG 12 lead (07/12/2025 12:26 PM EDT) Narrative Jasmin Buckner MD - 07/12/2025 12:26 PM EDT Bpm 65, sinus rhythm, incomplete RBBB us Jasmin Buckner MD ECG ORDERABLES Final Result * (ABNORMAL) Lipid Panel, Standard (07/20/2023 9:37 AM EDT) Triglycerides 126 <150 mg/dL [facility] Comment:Desirable Triglyceri de: less than 150 mg/dLBorderline High Triglyceride 150-199 mg/dLHigh Triglyceride: 200-499 mg/dLVery High Triglyceride: greater than or equal to 5OO mg/dL Cholesterol 251(H) <200 mg/dL [facility] Comment:Desirable Cholestero l: less than 200 mg/dLBorderline High Cholesterol: 200-239 mg/dLHigh Cholesterol: greater than 239 mg/dL LDL Cholesterol Calculated 163(H) <100 mg/dL [facility] Comment:Desirable LDL: less than 100 mg/dLNear Optimal/Above Optimal LDL: 110- 129 mg/dLBorderline High LDL: 130-159 mg/dLHigh LDL: 160-189 mg/dLVery High LDL: greater than or equal to 190 mg/dL HDL Cholesterol 63 >40 mg/dL [facility] Comment:Desirable HDL: great er than 40 mg/dL Note: This HDL assay may give artificially low results in patients with liver disease. Blood Venous blood specimen / Unknown 07/20/2023 9:37 AM EDT 07/20/2023 2:13 PM EDT Marion Cortez MD LAB BLOOD ORDERABLES Final Resul t Performing Organization Address [facility] Co de Phone Number [facility] [address] [place] [phone] * HEPATITIS C AB W/REFL TO HCV RNA, QN, PCR (08/19/2021 11:16 AM EDT) HEPATITIS C ANTIBODY NON-REACT YURY NON-REACT YURY [facility] INDEX 0.03 <1.00 [facility] Comment: HCV antibody was non-reactive. There is no laboratory evidence of HCV infection. In most cases, no further action is required. However, if recent HCV exposure is suspected, a test for HCV RNA (test code 10317) is suggested. For additional information please refer to http://education.[employer] Insight.[employer]/faq/PTZ81f4 (This link is being provided for informational/ educational purposes only.) 08/19/2021 11:1 6 AM EDT Susan Camargo MD HISTORICAL/NON ORDERABLE LAB S Final Result Performing Organization Address City/[facility]/ZIP Co de Phone Number [facility] [address] [place] [address], * 3D DIGITAL MICA SCR MAMMO 1 (01/27/2018 7:04 AM EST) Anatomical Region Laterality Modality Breast Bilateral Mammography 01/27/2018 7:04 AM EST Narrative 01/27/2018 7:07 AM EST Refer to the Notes tab for result details [facility] Procedure: 3D DIGITAL MICA SCR MAMMO 1 Procedure Note Provider, Malik, - 02/21/2023 Refer to the Notes tab for result details [facility] Procedure: 3D DIGITAL MICA SCR MAMMO 1 us Sheri Winn CNM IMG BI PROCEDURES Final R esult * HPV mRNA E6/E7 (01/05/2018 10:36 AM EST) HPV mRNA E6/E7 Not Detected NOT DETECTED [facility] Comment: This test was performed using the APTIMA(R) HPV Assay ([employer] This assay detects E6/E7 viral messenger RNA (mRNA) from 14 high-risk HPV types (16,18,31,33,35,39,45,51, 52,56,58,59,66,68). For additional information please refer to: http://education.Copybar/faq/YCZ965o7 (This link is being provided for informational/ educational purposes only.) Test Performed by [employer] [facility], [facility], [address] [place] [phone] Jcarlos Herrera M.D., Ph.D., Director of Laboratories , [facility] [id number] Please note: Effective 08/11/2016, HPV testing will be performed using [employer]'s APTIMA test which targets mRNA. Detecting mRNA instead of DNA, as in older methods, offers significant improvements in specificity. 01/05/2018 10:3 6 AM EST us Sheri Winn CNM HISTORICAL/NON ORDERABLE LABS Final Result [facility] [address] from Last 3 Months or Most Recently Relevant to Health Maintenance Insurance [place] [employer] [employer] STAND ADULT Care Teams Couturiere Relationship Specialty Start Date End Date Marion Cortez MD [address] [place] [phone] PCP - General Family Medicine 11/12/12
--- OUTSIDE RECORDS SUMMARY | 2025-09-11 09:07 | XMS_ITS | Encounter Summary ---
Author Organization [employer] Address [address] [facility] [address] [place] [address] Care Team Providers Care Pneumatic Tool Repairer Name Role Phone Marion Cortez MD Primary Care Provider [phone] Reason for Visit * Reason Comments Med Refill Encounter Details Date Type Department Care Team ([facility] st Contact Info) Description 09/06/2025 Refill [facility] [address] [place], [place] [phone] Ebony Fields MD [address] [place], [place] [phone] Opioid dependence, uncomplicated (CMS/HCC) (HCC) Social History Tobacco Use Types Packs/Day Years [...] 09/11/2025 10:00 AM EDT Clinical Support [facility] [address] [place] [address] Abbey Ocampo RN 11/06/2025 9:00 AM EST Office Visit [facility] [address] [place] [address] Yovani Ramires MD [address] [place] [phone] documented as of this encounter Goals Goal [...] documented as of this encounter Care Teams Pneumatic Tool Repairer Relationship Specialty Start Date End Date Marion Cortez MD [address] [place] [address] PCP - General Family Medicine 11/12/12 documented as of this encounter
== END 2025-07-18 00:01 | disposition home or self-care (01) ==
LOC: HO.PAT
PROVIDERS: Physician Assistant; PCP Student in an Organized Health Care Education/Training Program; Visit Provider Orthopaedic Surgery
DX: Z01.818 Encounter for other preprocedural examination (principal); Z01.84 Encounter for antibody response examination; E03.9 Hypothyroidism, unspecified
CPT/HCPCS: 36415; 80048; 83036; 85027; 86850; 86900; 86901; 87640; 87641

== ENCOUNTER 2025-07-18 14:00 | Outpatient (REF) | payer MEDICAID, SELFPAY ==
[2025-07-18 14:12] LABS: MANUAL DIFF FLAG NO
[2025-07-18 14:18] LABS: Hematocrit 44.0 % (37.0-47.0); Hemoglobin 14.1 g/dl (12.0-16.0); Imm Gran Abs Auto 0.01 X10*3/uL (0.00-0.03); Imm Gran Pct Auto 0.1 % (0.0-0.4); Lymphocytes Absolute Auto 2.2 X10*3/uL (1.2-4.9); Mean Corpuscular HGB Conc 32.0 g/dl (31.0-35.0); Mean Corpuscular Hemoglobin 31.1 pg (27.0-33.0); Mean Corpuscular Volume 97.1 fL (80.0-98.0); NRBC Abs Auto 0.000 X10*3/uL (0.0-0.012); NRBC Pct Auto 0.0 /100WBC (0.0-0.2); Platelet Count 206 X10*3/uL (160-400); Red Blood Count 4.53 X10*6/uL (4.20-5.50); White Blood Count 6.7 X10*3/uL (4.8-10.8)
[2025-07-18 14:21] LABS: INTERNATIONAL NORM RATIO 0.9 (0.9-1.1); Prothrombin Time 10.7 SEC (10.9-12.4)
[2025-07-18 14:47] LABS: Anion Gap 9 (12-20); Blood Urea Nitrogen 14 mg/dL (9-16); Calcium 9.2 mg/dL (8.4-10.2); Carbon Dioxide 34 mmol/L (22-29); Chloride 103 mmol/L (96-108); Estimated Glomerular Filt Rate > 60; Potassium 5.0 mmol/L (3.3-5.1); Sodium 141 mmol/L (135-145)
--- OUTSIDE RECORDS SUMMARY | 2025-07-18 15:21 | XMS_ITS | Encounter Summary ---
Author Organization [employer] Address [address] [place] [address] Care Team Providers Care Mophead Trimmer And Wrapper Name Role Phone Marion Cortez MD Primary Care Provider [phone] Reason for Visit * Reason Comments Med Refill Encounter Details Date Type Department Care Team ([facility] Contact Info) Description 08/12/2023 Refill [facility] MED & PEDS [address] [place] [address] Marion Cortez MD [address] [place] [address] Pain Social History Tobacco Use Types Packs/Day [...] Care Team (Late st Contact Info) Description 08/07/2025 11:00 AM EDT Office Visit [facility] MED & PEDS [address] [place] [address] Marion Cortez MD [address] [place] [address] 09/11/2025 10:00 AM EDT Telemedicine [facility] MED & PEDS [address] [place], [place] [phone] Yovani Ramires MD [address] [place] [address] documented as of this encounter Visit Diagnoses Diagnosis Pain Generalized pain documented in this encounter Care Teams Mophead Trimmer And Wrapper Relationship Specialty Start Date End Date Marion Cortez MD [address] [place] [address] PCP - General Family Medicine 11/12/12 documented as of this encounter
== END 2025-07-18 14:01 | disposition home or self-care (01) ==
LOC: HO.LAB 14:00
PROVIDERS: PCP Student in an Organized Health Care Education/Training Program; Visit Provider Pediatrics
DX: Z01.818 Encounter for other preprocedural examination (principal); E03.9 Hypothyroidism, unspecified
CPT/HCPCS: 36415; 80048; 84443; 85025; 85610

== ENCOUNTER 2025-08-03 08:58 | Outpatient (AMB) | payer MEDICAID, SELFPAY ==
--- NOTE | 2025-08-02 22:17 | A.OFFVIS_ITS ---
Vital Signs 08/03/25 09:14 Height 5 ft 1 in Weight 150 lb BMI 28.3 BP 144/87 H Blood Pressure Location Rt brachial Position Sitting Pulse 66 Pulse Source Monitor Intake Visit Reasons: AH MERY: Pre-Op: L rTSA w/NE 08/09/25 Intake Note: Darlin is a 64 year old female who presents today for a pre-operative visit to discuss left reverse total shoulder arthroplasty, scheduled with Dr. Good on 08/09/25. Pain management agreement reviewed and signed. Allergies No Known Allergies Allergy (Verified 08/03/25 09:12) HPI Comments Details: Ms Amaya presents to the office today for Orthopedic Pre op clearance. She is scheduled for a Left reverse Total shoulder arthroplasty with Dr Good on 08/09/25. She has been experiencing left shoulder pain for over a year. The pain in the shoulder is limiting her ability to perform daily activities, such as lifting, pushing , pulling or carrying. She has a history of cortisone inj ections with her PCP. She had an MRI of the left shoulder which demonstrated full thickness rotator cuff tears along with OA and collapse of the humeral head. She feels the quality of her life is diminished. She can not comfortably get her hand to her mouth through the back of her head. She feels the pain prevents her from sleeping at night occasionally and she has difficulty with daily activi ties. She denies any specific injury leading up to this moment. She lives with another adult who is able to assist in-home after D/C, no animals or small children She is on Suboxone 8mg TID for hx OUD for 16 years. Plan for BID for 2-3 days preop. Will hold or take 1/2 film DOS. Activie smoker 50+ years Patient had PCP clearance performed on 07/12/[address] Buckner, who cleared the patient for surgery. [facility] Medical History (Updated 07/18/25 @ 13:24 by Verito Yu, ARCHIE) Arthritis Pain in left shoulder Smoker Depression Anxiety Hypothyroidism Surgical History Hx of hysterectomy (~2014) Social History (Updated 07/18/25 @ 13:47 by Verito Yu, ARCHIE) Household Members: Significant Other Housing: House Are you a primary emergency care attendant to a significant other at home: No Do you presently have visiting nurse or other home services: No Patient Tobacco Use Status: Current everyday Tobacco user Tobacco use type: Cigarette Cigarettes Per Day: 15 Years Smoked: 50 Smoked in Last 30 Days: Yes Patient Interested in Nicotine Replacement: No Second Hand Smoke Exposure: No Use of substances other than those prescribed or required for medical reasons: No Substance Use Type: Former Substance User and Opiates Substance Use Type Other:: on Suboxone 16 years Have you been hit, kicked, punched, or otherwise hurt by someone within the past year? If so, by whom?: No Are you DNR?: No Advance Directives: No Advance Directives Information Provided: Yes Advance Directives on File: No Poor oral hygiene: No Review of Systems Const All systems reviewed & are unremarkable except as noted in HPI and below Physical Exam Vital Signs: Last Vital Signs Pulse 66 08/03/25 09:14 BP 144/87 H 08/03/25 09:14 BMI result Body Mass Index 28.3 Const General: cooperative, healthy appearing, comfortable, no acute distress, well developed and alert Orientation/consciousness: patient oriented x3 HEENT Head: Yes normal to inspection, Yes normocephalic and Yes atraumatic Eyes General: appearance normal, both eyes and all related structures Neck Neck: Yes normal visual inspection and Yes no lymphadenopathy Resp Effort & Inspection: normal respiratory effort and able to speak in complete sentences Cardio Rate: regular rate Peripheral pulses: Peripheral pulses 2+ throughout GI Inspection: Yes normal to inspection Palpation (GI): Soft to palpation Skin General skin exam: no rashes or lesions noted Neuro General: patient oriented x3 Extrem Other: 30/60/100/hp 4-/5 ec neg lift off Psych Appearance: grossly normal Mental Status: mental status grossly normal Assessment & Plan Assessment & Plan (1) Rotator cuff arthropathy of left shoulder: Code(s): M12.812 - Other specific arthropathies, not elsewhere classified, left shoulder Category: Medical Plan: Dr. Good was available to meet with the patient today and given the patient smokes about a pack a day it puts her at a significant risk for complications postoperatively which include but are not limited to infection, bone and tissue healing complications. The patient does express understanding. I did send her a prescription for a nicotine patch and her primary will take over for refills. We will have Michelle contact the patient to discuss rescheduling. Orders: Orders Type and Screen Today Z01.818 - Encounter for other preprocedural examination Hemoglobin A1c Today E11.9 - Type 2 diabetes mellitus without complications PT Evaluation and Treatment Today M12.812 - Other specific arthropathies, not elsewhere classified, left shoulder Medications: New nicotine 1 patch transdermal DAILY 28 ea 0RF Coding Level of Care Code Est Pt Level 4 (60223) Complex EM visit Add On G2211 Diagnoses Rotator cuff arthropathy of left shoulder M12.812
[2025-08-03 09:14] VITALS: BP 144/87; PULSE 66; BMI 28.3
--- OUTSIDE RECORDS SUMMARY | 2025-08-03 09:29 | XMS_ITS | Encounter Summary ---
Author Organization [employer] Address [address] [place] [address] [address], [place] [address] Care Team Providers Care Meeting Coordinator Name Role Phone Marion Cortez MD Primary Care Provider [phone] Reason for Visit * Reason Comments Med Refill Encounter Details Date Type Department Care Team ([facility] Contact Info) Description 11/05/2022 Refill [facility] MEDICINE [address] [place] [address] [phone] Yovani Ramires MD [address] [place] [address] Opioid dependence, uncomplicated (CMS/HCC) Social History Tobacco [...] Upcoming Encounters Date Type Department Care Team ([facility] Contact Info) Description 08/07/2025 11:00 AM EDT Office Visit [facility] MED & PEDS [address] [place] [address] Marion Cortez MD [address] [place] [address] 09/11/2025 10:00 AM EDT Telemedicine [facility] MED & PEDS [address] [place], [place] [phone] Yovani Ramires MD [address] [place] [address] documented as of this encounter Visit Diagnoses Diagnosis Opioid dependence, uncomplicated (CMS/HCC) documented in this encounter Care Teams Meeting Coordinator Relationship Specialty Start Date End Date Marion Cortez MD [address] [place] [id number] PCP - General Family Medicine 11/12/12 documented as of this encounter
--- OUTSIDE RECORDS SUMMARY | 2025-08-03 09:29 | XMS_ITS | Encounter Summary ---
Author Organization [employer] Address [address] [facility] 7t [place] [address] Care Team Providers Care Board Layer Name Role Phone Marion Cortez MD Primary Care Provider [phone] Reason for Visit * Reason Onset Date Comments Nurse Triage 09/14/2024 Encounter Details Date Type Department Care Team ([facility] st Contact Info) Description 09/14/2024 Telephone [facility] MEDICINE [address] [place] [address] Marion Cortez MD [address] [place] [address] Nurse Triage Social History Tobacco Use Types [...] Description 08/07/2025 11:00 AM EDT Office Visit [facility] MED & PEDS [address] [place] [address] Marion Cortez MD [address] [place] [address] 09/11/2025 10:00 AM EDT Telemedicine [facility] MED & PEDS [address] [place] [address] Yovani Ramires MD [address] [place] [phone] documented as of this encounter Visit Diagnoses Not on filedocumented in this encounter Care Teams Board Layer Relationship Specialty Start Date End Date Marion Cortez MD [address] [place] [address] PCP - General Family Medicine 11/12/12 documented as of this encounter
--- OUTSIDE RECORDS SUMMARY | 2025-08-03 09:29 | XMS_ITS | Encounter Summary ---
Author Organization [email or web address] Address [address] [facility] [address]t [place] [address] Care Team Providers Care President [employer] Name Role Phone Marion Cortez MD Primary Care Provider [phone] Reason for Visit * Reason Comments Med Refill Encounter Details Date Type Department Care Team ([facility] Contact Info) Description 07/08/2025 Refill [facility] MED & PEDS [address] [place], [place] [phone] Marion Cortez MD [address] [place] [address] Uncomplicated asthma, unspecified asthma severity, unspecified whether [...] Description 08/07/2025 11:00 AM EDT Office Visit [facility] MED & PEDS [address] [place] [address] Marion Cortez MD [address] [place] [address] 09/11/2025 10:00 AM EDT Telemedicine [facility] MED & PEDS [address] [place] [address] Yovani Ramires MD [address] [place] [address] documented as of this encounter Goals Goal Patient Goal Type Associated Problems Recent Progress Patient-Stated? Author Prepare for and recovery fully from upcoming surgery. General On track(07/17/20 10:13 AM EDT) Yes Abbey Ocampo, RN documented as of this encounter Visit Diagnoses Diagnosis Uncomplicated asthma, unspecified asthma severity, unspecified whether persistent documented in this encounter Care Teams President [employer] Relationship Specialty Start Date End Date Marion Cortez MD [address] [place] [address] PCP - General Family Medicine 11/12/12 documented as of this encounter
--- OUTSIDE RECORDS SUMMARY | 2025-08-03 09:29 | XMS_ITS | Encounter Summary ---
Author Organization [employer] Address [address] [place] [address] Care Team Providers Care College Specialist Name Role Phone Marion Cortez MD Primary Care Provider [phone] Reason for Visit * Reason Comments Med Refill Encounter Details Date Type Department Care Team ([facility] Contact Info) Description 08/12/2023 Refill [facility] MED & PEDS [address] [facility] [place] [address] Marion Cortez MD [address] [place] [address] Pain Social History Tobacco Use Types Packs/Day [...] Description 08/07/2025 11:00 AM EDT Office Visit [facility] MED & PEDS [address] [place] [address] Marion Cortez MD [address] [place] [address] 09/11/2025 10:00 AM EDT Telemedicine [facility] MED & PEDS [address] [place], [place] [phone] Yovani Ramires MD [address] [place] [address] documented as of this encounter Visit Diagnoses Diagnosis Pain Generalized pain documented in this encounter Care Teams College Specialist Relationship Specialty Start Date End Date Marion Cortez MD [address] [place] [address] PCP - General Family Medicine 11/12/12 documented as of this encounter
--- OUTSIDE RECORDS SUMMARY | 2025-08-03 09:29 | XMS_ITS | Encounter Summary ---
Author Organization [employer] Address [address] [facility] 7t [place] [address] Care Team Providers Care Lime Boiler Name Role Phone Marion Cortez MD Primary Care Provider [phone] Reason for Visit * Reason Onset Date Comments Pre-op Exam 05/05/2025 Encounter Details Date Type Department Care Team ([facility] Contact Info) Description 05/05/2025 Telephone [facility] MEDICINE [address] [place] [address] Marion Cortez MD [address] [place], [place] [phone] Pre-op Exam (/) Social History Tobacco Use Types Packs/Day Years [...] encounter Miscellaneous Notes * Telephone Encounter - Vivian Ortiz - 05/05/2025 10:51 AM EDT Sakina at [facility] orth[facility] agreed to pre op appointment on 07/12/25 at 09:45AM With . Appointment reminder letter mailed * Telephone Encounter - Silvina Schmitz - 05/05/2025 10:36 AM EDT Date of Surgery: 08/09/2025 Surgical procedure being done: Left reverse total shoulder replacement Type of anesthesia: General Lab needed: Yes EKG: Yes Surgeon's name: Beto Good Facility name: [facility] Surgeon's office number: [phone] Surgeon's office fax number: [phone] Contact name (person you spoke with): Sakina Last office note from surgeon requested: Yes Send Message to Vivian Ortiz and Killian Hay documented in this encounter Plan of Treatment Upcoming Encounters Date Type Department Care Team ([facility] st Contact Info) Description 08/07/2025 11:00 AM EDT Office Visit [facility] MED & PEDS [address] [place] [address] Marion Cortez MD [address] [place] [address] 09/11/2025 10:00 AM EDT Telemedicine [facility] MED & PEDS [address] [place] [address] Yovani Ramires MD [address] [place] [address] documented as of this encounter Visit Diagnoses Not on filedocumented in this encounter Care Teams Lime Boiler Relationship Specialty Start Date End Date Marion Cortez MD [address] [place] [address] PCP - General Family Medicine 11/12/12 documented as of this encounter
--- OUTSIDE RECORDS SUMMARY | 2025-08-03 09:29 | XMS_ITS | Encounter Summary ---
Author Organization [employer] Address [address] [facility] 7 [place] [address] Care Team Providers Care Dynamometer Tester Name Role Phone Marion Cortez MD Primary Care Provider [phone] Reason for Visit * Reason Onset Date Comments Referral 12/16/2023 Encounter Details Date Type Department Care Team ([facility] st Contact Info) Description 12/16/2023 Telephone [facility] MED [facility] PEDS [address] [place], [place] [phone] Marion Cortez MD [address] [place] [address] Referral Social History Tobacco Use Types Packs/Day [...] 11:01 AM EST Tc from [place] with [facility] calling to inform the 2 referral that were sent for left wristdrop on 11/24/23says PT and it should be OT . Please call to clarify at [phone]. . documented in this encounter Plan of Treatment Upcoming Encounters Date Type Department Care Team (Late st Contact Info) Description 08/07/2025 11:00 AM EDT Office Visit [facility] MED & PEDS [address] [place] [address] Marion Cortez MD [address] [place] [address] 09/11/2025 10:00 AM EDT Telemedicine [facility] MED & PEDS [address] [place] [address] Yovani Ramires MD [address] [place] [address] documented as of this encounter Visit Diagnoses Not on filedocumented in this encounter Care Teams Dynamometer Tester Relationship Specialty Start Date End Date Marion Cortez MD [address] [place] [address] PCP - General Family Medicine 11/12/12 documented as of this encounter
--- OUTSIDE RECORDS SUMMARY | 2025-08-03 09:29 | XMS_ITS | Clinical Summary ---
Author Organization [employer] Address [address] [facility] 7[address] [place] [address] Care Team Providers Care Carpentry Professional Name Role Phone Marion Cortez MD Primary Care Provider [phone] Allergies No known active allergies Medications albuterol [...] for 10 days. 30 tablet 024 Active meloxicam (Mobic) 15 MG tablet TAKE ONE TABLET EVERY MORNING 30 tablet 11 025 Active levothyroxine (Synthroid, Levoxyl) 112 MCG tablet TAKE ONE TABLET BY MOUTH EVERY DAY 90 tablet 1 025 Active Ventolin HFA 108 (90 Base) MCG/ACT inhalerIndicatio ns:Uncomplicated asthma, unspecified asthma severity, unspecified whether persistent INHALE TWO PUFFS BY MOUTH EVERY 4 HOURS NEEDED FOR WHEEZING 18 g 1 025 Active PARoxetine (Paxil) 30 MG tabletIndication s:Depression, unspecified depression type Take 1 tablet (30 mg) by mouth Once per day. 30 tablet 025 Active Buprenorphine HCl-Naloxone HCl (Suboxone) 8-2 MG SL filmIndications: Opioid dependence, uncomplicated (CMS/HCC) Place 1 Film under the tongue 3 times daily. Do not start before July 17, 2025. 84 Film 1 025 2024 Active Buprenorphine HCl-Naloxone HCl (Suboxone) 8-2 MG SL filmIndications: Opioid dependence, uncomplicated (CMS/HCC) Place 1 Film under the tongue 3 times daily. Do not start before May 22, 2025. 84 Film 1 025 2024 Discontinued(R eorder (will not trigger notification to Pharmacy)) Active Problems Problem Noted Date Diagnosed Date Tobacco dependence syndrome 08/07/2015 Opioid dependence 01/25/2013 Ganglion cyst 04/01/2012 Hypothyroidism 04/01/2012 Postmenopausal bleeding 04/01/2012 Encounters Date Type Department Care Team Description 07/28/2025 Patient Outreach [facility] [address] [place] [phone] Marion Cortez MD Pre-visit Planning (SDOH screening negative and Tobacco screening positive) 07/18/2025 Orders Only GENERIC EXTERNAL DATA DEPARTMENT Provider, Generic External Data 07/17/2025 9:30 AM EDT Clinical Support [facility] [address] [place] [address] Abbey Ocampo, RN Opioid dependence, uncomplicated (CMS/HCC) (Primary Dx) 07/17/2025 Travel 07/14/2025 Refill [facility] [address] [place] [phone] Abbey Ocampo RN Opioid dependence, uncomplicated (CMS/HCC) 07/12/2025 9:45 AM EDT Office Visit [facility] [address] [place] [address] Jasmin Buckner MD Preop examination (Primary Dx); Hypothyroidism, unspecified type; Opioid dependence in remission (CMS/HCC) 07/12/2025 Travel 07/10/2025 Travel 07/08/2025 Refill [facility] [address] [place] [address] Marion Cortez MD Uncomplicated asthma, unspecified asthma severity, unspecified whether persistent 06/05/2025 2:15 PM EDT Telemedicine [facility] [address] [place] [address] Yovani Ramires MD Opioid dependence, uncomplicated (CMS/HCC) (Primary Dx) 06/05/2025 Travel 06/01/2025 Refill [facility] [address] [place] [phone] Marion Cortez MD Depression, unspecified depression type 05/31/2025 Refill [facility] [address] [place] [address] Marion Cortez MD Uncomplicated asthma, unspecified asthma severity, unspecified whether persistent 05/22/2025 9:15 AM EDT Clinical Support [facility] [address] [place] [address] Abbey Ocampo RN Opioid type dependence, continuous (CMS/HCC) (Primary Dx) 05/22/2025 Travel 05/15/2025 Refill [facility] [address] [place] [address] Abbey Ocampo RN Opioid dependence, uncomplicated (CMS/HCC) 05/05/2025 Telephone [facility] [address] [place] [address] [phone] Marion Cortez MD Pre-op Exam (/) from Last 3 Months Immunizations Immunization Administration Dates Next Due Influenza injectable quadriv [...] housing situation today? I have hayde escalante 07/28/[address] you li ve. Do you have problems with any of the following? None of the above 07/28/2025 Food Insecurity Answer Date Recorded Within the past 12 months, y ou worried that your food would run out before you got money to buy more: Never True 07/28/2025 Within the past 12 months,th e food you bought just didn't last and you didn't have enough money to get more: Never True Transportation Answer Date Recorded In the past 12 months, has l ack of transportation kept you from medical appts, meetings, work or from getting things needed for daily living? No 07/28/2025 Utilities Answer Date Recorded In the past 12 months, has t he electric, gas, oil or water company threatened to shut off services in your home? No 07/28/2025 Internet Access Answer Date Recorded Internet Access Q1 Yes 07/28/2025 Internet Access Q2 Not on file 07/28/2025 Comments No Sex and Gender Information Value Date Recorded Sex Assigned at Female 09/29/2022 10:18 AM EDT Legal Sex Female 10:18 AM EDT Gender Identity Female 09/29/2022 10:18 AM EDT Sexual Orientation Straight 09/29/2022 10 :18 AM EDT Last Filed Vital Signs Vital Sign Reading Time Taken Comments Blood Pressure 140/80 07/12/2025 12:22 PM EDT Pulse 68 07/12/2025 9:51 AM EDT Temperature 36.7 C (98.1 F) 07/12/2025 9:51 AM EDT Respiratory Rate 20 07/12/2025 9:51 AM EDT Oxygen Saturation 93% 11/03/2024 10:06 AM EST Inhaled Oxygen Concentration - - Weight 67.6 kg (149 lb) 07/12/2025 9:51 AM EDT Height 154.9 cm (5' 1 ) 07/12/2025 9:51 AM EDT Body Mass Index 28.15 07/12/2025 9:51 AM EDT Plan of Treatment Upcoming Encounters Date Type Department Care Team (Late st Contact Info) Description 08/07/2025 11:00 AM EDT Office Visit [facility] [address] [place] [address] Marion Cortez MD [address] [place] [address] 09/11/2025 10:00 AM EDT Telemedicine [facility] [address] [place], [place] [phone] Yovani Ramires MD [address] [place] [address] Health Maintenance Due Date Last Done Comments [...] Cervical Cancer Screening 01/05/2023 HPV/Cotest 01/05/2023 01/05/2018 Dental X-Ray: Bitewings 08/20/2024 08/19/2023 COVID-19 Vaccine ( season) 2025 03/24/2021, 03/02/2021 Influenza Vaccine (#1) 2025 8, 01/05/2018, 10/16/2014, Additional history exists Disability Screening 07/10/2026 07/10/2025 Tobacco Screening 07/12/2026 07/12/2025 SDOH Screening 07/28/2026 07/28/2025 Lipid Panel 07/20/2028 07/20/2023 Hepatitis C Screening [...] patient's age to complete this topic Meningococcal B Vaccine Aged Out No l onger eligible based on patient's age to complete this topic Meningococcal Vaccine Aged Out No maria d ze eligible based on patient's age to complete this topic RSV under 20 months Aged Out No longe r eligible based on patient's age to complete this topic Rotavirus Vaccines Aged Out No longer eligible based on patient's age to complete this topic Goals Goal Patient Goal Type Associated Problems Recent Progress Patient-Stated? Author Prepare for and recovery fully from upcoming surgery. General On track(07/17/20 10:13 AM EDT) Yes Abbey Ocampo RN Procedures Procedure Name Priority Date/Time Associated Diagnosis Comments TSH W/REFLEX TO FT4 Routine 07/18/2025 2 :10 PM EDT Hypothyroidism, unspecified type PROTHROMBIN TIME-INR Routine 07/18/2025 2:10 PM EDT Preop examination BASIC METABOLIC PANEL Routine 07/18/2025 2:10 PM EDT Preop examination CBC WITH AUTO DIFFERENTIAL Routine 07/18/2025 2:10 PM EDT Preop examination MRSA NASAL SCREEN Routine 07/18/2025 1:3 0 PM EDT POCT JUANI-14 URINE DRUG SCREEN Routine 07/17/2025 9:51 AM EDT Opioid dependence, uncomplicated (CMS/HCC) ECG 12-LEAD Routine 07/12/2025 12:26 PM EDT Preop examination POCT JUANI-14 URINE DRUG SCREEN Routine 05/22/2025 9:19 AM EDT Opioid type dependence, continuous (CMS/HCC) BITEWING - [...] Recently Relevant to Health Maintenance Results * TSH W/Reflex to FT4 (07/18/2025 2:10 PM EDT) TSH reflex Free T4 2.01 0.32 - 4.0 uIU/mL [facility] Blood Venous blood specimen / Unknown 07/18/2025 2:10 PM EDT 07/18/2025 2:10 PM EDT us Jasmin Buckner MD LAB BLOOD ORDERABLES Final Re sult [facility] [address] [place] [phone] * CBC auto differential (07/18/2025 2:10 PM EDT) White Blood Count 6.7 4.8 - 10.8 X10*3/uL [facility] Red Blood Count 4.53 4.20 - 5.50 X10*6/uL [facility] Hemoglobin 14.1 12.0 - 16.0 g/dl [facility] Hematocrit 44.0 37.0 - 47.0 % [facility] Mean Corpuscular Volume 97.1 80.0 - 98.0 fL [facility] Mean Corpuscular Hemoglobin 31.1 27.0 - 33.0 pg [facility] Mean Corpuscular HGB Conc 32.0 31.0 - 35.0 g/dl [facility] Red Cell Distribution Width 13.3 11.0 - 16.0 % [facility] Platelet Count 206 160 - 400 X10*3/uL [facility] Mean Platelet Volume 9.5 9.4 - 12.3 fL [facility] Neutrophils Percent Auto 54.9 45 - 73 % [facility] Imm Gran Pct Auto 0.1 0.0 - 0.4 % [facility] Lymphocytes Percent Auto 33.1 20 - 40 % [facility] Monocytes Percent Auto 7.9 2 - 11 % [facility] Eosinophils Percent Auto 3.1 0 - 4 % [facility] Basophils Percent Auto 0.9 0 - 2 % [facility] NRBC Pct Auto 0.0 0.0 - 0.2 /100WBC [facility] Neutrophils Absolute Auto 3.7 2.0 - 8.3 x10*3/uL [facility] Imm Gran Abs Auto 0.01 0.00 - 0.03 X10*3/uL [facility] Lymphocytes Absolute Auto 2.2 1.2 - 4.9 X10*3/uL [facility] Monocytes Absolute Auto 0.5 0.1 - 1.2 X10*3/uL [facility] Eosinophils Absolute Auto 0.2 0.0 - 0.4 X10*3/uL [facility] Basophils Absolute Auto 0.1 0.0 - 0.2 X10*3/uL [facility] NRBC Abs Auto 0.000 0.0 - 0.012 X10*3/uL [facility] Blood Venous blood specimen / Unknown 07/18/2025 2:10 PM EDT 07/18/2025 2:10 PM EDT Jasmin Buckner MD LAB BLOOD ORDERABLES Final Re sult Performing Organization Address [facility] Co de Phone Number [facility] [address] [place] [phone] * (ABNORMAL) Prothrombin Time-INR (07/18/2025 2:10 PM EDT) Prothrombin Time 10.7(L) 10.9 - 12.4 SEC [facility] INTERNATIONAL NORM RATIO 0.9 0.9 - 1.1 [facility] Comment:INTERNATIONAL NORMAL IZED RATIO (INR) REFERENCE RANGES Reference RangeFor patients not on anticoagulant therapy: 0.9 - 1.1INR ranges for oral anticoagulanttherapy:For prevention and treatment of venous thrombosis and pulmonary embolism: 2.0 - 3.0For acute myocardial infarction with aspirin therapy: 2.0 - 3.0For acute myocardial infarction without aspirin therapy: 3.0 - 4.0For patients with mechanical prosthetic heart valves: 2.5 - 3.5 Blood Venous blood specimen / Unknown 07/18/2025 2:10 PM EDT 07/18/2025 2:10 PM EDT Jasmin Buckner MD LAB BLOOD ORDERABLES Final Re sult Performing Organization Address [facility]/ZIP Co de Phone Number [facility] [address] [place] [phone] * (ABNORMAL) Basic Metabolic Panel (07/18/2025 2:10 PM EDT) Pathologist [facility] Sodium 141 135 - 145 mmol/L [facility] Potassium 5.0 3.3 - 5.1 mmol/L [facility] Chloride 103 96 - 108 mmol/L [facility] Carbon Dioxide 34(H) 22 - 29 mmol/L [facility] Anion Gap 9(L) 12 - 20 [facility] Urea Nitrogen (BUN) 14 9 - 16 mg/dL [facility] Creatinine, Serum 0.62 0.5 - 1.4 mg/dL [facility] Estimated Glomerular Filt Rate >60 [facility] Comment:Chronic Kidney Disea se: Estimated GFR < 60 mL/min/1.05b8Ywtxcm Kidney Disease: Estimated GFR < 15 mL/min/1.73m2 Glucose 83 60 - 115 mg/dL [facility] Calcium 9.2 8.4 - 10.2 mg/dL [facility] Blood Venous blood specimen / Unknown 07/18/2025 2:10 PM EDT 07/18/2025 2:10 PM EDT us Jasmin Buckner MD LAB BLOOD ORDERABLES Final Re sult Performing Organization Address City/[facility]/ZIP Co de Phone Number [facility] [address] [place] [phone] * MRSA Nasal Screen (07/18/2025 1:30 PM EDT) MRSA Nasal PCR NEGATIVE Negative [facility] SA Nasal PCR NEGATIVE Negative [facility] MRSA Interpretation SEE NOTE [facility] Comment:MRSA target DNA not detected; SA target DNA not detected.A MRSA NEGATIVE, SA NEGATIVE test result does not precludeMRSA or SA nasal colonization. 07/18/2025 1:3 0 PM EDT 07/18/2025 2:00 PM EDT us Generic External Data Provider LAB MICROBIOLOGY - GENERAL ORDERABLES Final Result Performing Organization Address City/[facility]/ZIP Co de Phone Number [facility] [address] [place] [phone] * (ABNORMAL) POCT JUANI-14 Urine Drug Screen (07/17/2025 9:51 AM EDT) Only the most recent of2 resultswithin the time period is included. THC Negative Negative Cocaine Screen, Urine Negative Negative Opiate Screen, Urine Negative Negative Methamphetamine Screen Urine Negative Negative Amphetamine Screen, Urine Negative Negative Benzodiazepines Screen, Urine Negative Negative Barbiturate Screen, Urine Negative Negative Methadone Screen, Urine Negative Negative Buprenophine Screen, Urine Positive(A) Negative TCA, Urine Negative Negative MDMA Urine Negative Negative ng/mL Oxycodone Screen, Urine Negative Negative Phencyclidine (PCP), Urine Negative Negative Fentanyl, Urine Negative Negative Urine Urine specimen obtained by clean catch procedure / Unknown 07/17/2025 9:51 AM EDT Samia Singh RESIDENTIAL MENTAL HEALTH WORKER POINT OF CARE TEST ENTER/EDIT ORDERABLES Final Result * ECG 12 lead (07/12/2025 12:26 PM EDT) Narrative Jasmin Buckner MD - 07/12/2025 12:26 PM EDT Bpm 65, sinus rhythm, incomplete RBBB Jasmin Buckner MD ECG ORDERABLES Final Result * (ABNORMAL) Lipid Panel, Standard (07/20/2023 9:37 AM EDT) Pathologist [facility] Triglycerides 126 <150 mg/dL [facility] Comment:Desirable Triglyceri de: less than 150 mg/dLBorderline High Triglyceride 150-199 mg/dLHigh Triglyceride: 200-499 mg/dLVery High Triglyceride: greater than or equal to 5OO mg/dL Cholesterol 251(H) <200 mg/dL [facility] Comment:Desirable Cholestero l: less than 200 mg/dLBorderline High Cholesterol: 200-239 mg/dLHigh Cholesterol: greater than 239 mg/dL LDL Cholesterol Calculated 163(H) <100 mg/dL [facility] Comment:Desirable LDL: less than 100 mg/dLNear Optimal/Above Optimal LDL: 110- 129 mg/dLBorderline High LDL: 130-159 mg/dLHigh LDL: 160-189 mg/dLVery High LDL: greater than or equal to 190 mg/dL HDL Cholesterol 63 >40 mg/dL [facility] Comment:Desirable HDL: great er than 40 mg/dL Note: This HDL assay may give artificially low results in patients with liver disease. Blood Venous blood specimen / Unknown 07/20/2023 9:37 AM EDT 07/20/2023 2:13 PM EDT Marion Cortez MD LAB BLOOD ORDERABLES Final Resul t Performing Organization Address City/[facility]/ZIP Co de Phone Number [facility] [address] [place] [phone] * HEPATITIS C AB W/REFL TO HCV RNA, QN, PCR (08/19/2021 11:16 AM EDT) HEPATITIS C ANTIBODY NON-REACT YURY NON-REACT YURY [facility] INDEX 0.03 <1.00 [facility] Comment: HCV antibody was non-reactive. There is no laboratory evidence of HCV infection. In most cases, no further action is required. However, if recent HCV exposure is suspected, a test for HCV RNA (test code 33627) is suggested. For additional information please refer to http://education.Zachary Prell/faq/CRH84v3 (This link is being provided for informational/ educational purposes only.) 08/19/2021 11:1 6 AM EDT Susan Camargo MD HISTORICAL/NON ORDERABLE LAB S Final Result Performing Organization Address City/[facility] Co de Phone Number [facility] [address] * 3D DIGITAL MICA SCR MAMMO [...] 3D DIGITAL MICA SCR MAMMO 1 Sheri Winn CNM IMG BI PROCEDURES Final R esult * HPV mRNA E6/E7 (01/05/2018 10:36 AM EST) HPV mRNA E6/E7 Not Detected NOT DETECTED [facility] Comment: This test was performed using the APTIMA(R) HPV Assay ([employer] This assay detects E6/E7 viral messenger RNA (mRNA) from 14 high-risk HPV types (16,18,31,33,35,39,45,51, 52,56,58,59,66,68). For additional information please refer to: http://education.Zachary Prell/faq/GKV587k1 (This link is being provided for informational/ educational purposes only.) Test Performed by [employer] Paula, [employer] [facility], [address] [place] [phone] Jcarlos Herrera M.D., Ph.D., Director of Laboratories , [facility] [id number] Please note: Effective 08/11/2016, HPV testing will be performed using [employer]'s APTIMA test which targets mRNA. Detecting mRNA instead of DNA, as in older methods, offers significant improvements in specificity. 01/05/2018 10:3 6 AM EST Sheri Winn CNM HISTORICAL/NON ORDERABLE LABS Final Result [facility] [address] from Last 3 Months or Most Recently Relevant to Health Maintenance Insurance [facility] [employer] STAND ADULT Care Teams Carpentry Professional Relationship Specialty Start Date End Date Marion Cortez MD [address] [place] [phone] PCP - General Family Medicine 11/12/12
== END 2025-08-03 10:45 | disposition home or self-care (01) ==
LOC: HO.HOS 08:59
PROVIDERS: PCP Student in an Organized Health Care Education/Training Program; Visit Provider Physician Assistant
DX: M12.812 Other specific arthropathies, not elsewhere classified, left shoulder (principal)
CPT/HCPCS: 99214

== ENCOUNTER → 2025-08-03 08:58 | Outpatient (BNVA) | payer MEDICAID, SELFPAY | PROVIDERS: PCP Student in an Organized Health Care Education/Training Program; Visit Provider Physician Assistant | DX: M12.812 Other specific arthropathies, not elsewhere classified, left shoulder (principal) | CPT/HCPCS: 99212 ==